=== PATIENT | female | born 2000 | race Caucasian/White ===

== ENCOUNTER 2021-02-25 09:54 | Outpatient (CLI) | payer OTHER, SELFPAY | END 2021-02-25 09:55 | disposition home or self-care (01) | LOC: ANHBWCAUD 09:55 | PROVIDERS: PCP Family Medicine; Visit Provider Otolaryngology | DX: H90.0 Conductive hearing loss, bilateral (principal) | CPT/HCPCS: 92557; 92567 ==

== ENCOUNTER 2021-03-14 02:56 | Day surgery (SDC) | payer OTHER, SELFPAY ==
[2021-03-05 15:08] VITALS: BMI 20.7
--- NOTE | 2021-03-05 15:33 | PC.NURSE ---
Report to the Outpatient Waiting Room, entrance under the green pavilion located off [facility], at time 1230 on date 03/14/21__. OR Time: ____1430____. - You and your visitor will be asked a series of questions to screen for COVID 19 for your protection. - A mask is required within the hospital. - CURRENTLY NO VISITORS Allowed at this time. Patient visitors will be guided where to wait when not with patient. Preoperative COVID Testing Requirements: No COVID Test needed if: (proof is required; if not received patient will have Rapid Test prior to entry) - Patient has received COVID Vaccine at least 14 days prior to procedure date or - Patient has positive COVID test result within last 90 days of surgery date. COVID Test needed if above criteria is not met If not COVID vaccinated a COVID test must be conducted within 72 hours of surgery and patient is asked to isolate self from time of testing until procedure. You will go to the [facility] for your COVID testing. The [facility] is located at the corner of [address] [facility]. You will only be called if COVID results are positive and your surgeon may reschedule your elective surgery date. Patients may have clear liquids (water, carbonated beverages, clear teas, apple juice) until 3 hours prior to surgery with a maximum of 20 ounces. - No food from midnight until time of surgery - Infants may have breast milk until 4 hours before surgery, formula 6 hours prior to surgery. - Children will be allowed to drink immediately following surgery. If applicable, please bring a bottle or sippy cup to assist with drinking. Juice, water, soda, and popsicles are readily available. For infants on formula, please bring formula the day of surgery. Pacifiers are allowed. Take the following medications with a SIP of water the morning of surgery: __AMITRIPTYLINE Medications to discontinue per physician MULTIVITAMIN Date to take last dose__03/11/21 Please no make-up, nail djiboutian, hairspray, perfume, deodorant, or body powder the day of surgery. No jewelry (including any body piercings) or valuables the day of surgery, leave them at home. Please take a shower or bath the night before, or the morning of, surgery with an antibacterial soap. Wear comfortable, loose fitting clothing. Children are encouraged to wear pajamas. - Jewelry must be removed prior to entering the operating room. Rings and piercings that are not removed may be cut off. - The hospital will not accept responsibility for valuables. - Please leave all valuables, including medications, at home the day of surgery. If you are going home after surgery, a licensed food mobile driver must drive you home. - NO public transportation without another adult. - We recommend that an adult stay with you for 24 hours following discharge. - We also recommend that you do not drive, make important decision, drink alcoholic beverages, or take any drugs that were not prescribed by your health care provider for at least 24 hours after your discharge time. For Pediatric surgeries, we recommend two adults accompany the child home (only one inside the building at this time). Follow any additional instructions given to you from your surgeon. Telephone instructions given to __BRADEN and asked if any additional questions and then verbalized understanding. Patient advised to call surgeon office or pre surgery nurse liaison [phone] if any additional questions.
--- NOTE | 2021-03-13 18:28 | PM.IMHP ---
H&P: HPI History of Present Illness Date/Time: 03/13/21 18:28 Chief Complaint: adenoiditis, adenoid hypertrophy Narrative: patient presents for planned surgical procedure no change in symptoms no change in history Review of Systems Constitutional: Constitutional: Denies fatigue, Denies fever(s) and Denies lethargy Eyes: Eyes: Denies blurry vision and Denies change in vision ENT: Reports as per HPI Cardiovascular: Cardiovascular: Denies chest pain Respiratory: Respiratory: Denies cough Endocrine: Endocrine: Denies fatigue Hematologic/Lymphatic: Hematologic/Lymphatic: Denies easy bleeding, Denies easy bruising and Denies lymphadenopathy Allergic/Immunologic: Allergic/Immunologic: Denies seasonal rhinorrhea [facility] Past Medical History Medical History Astigmatism Constipation IBS (irritable bowel syndrome) Infectious mononucleosis without complication Iron deficiency anemia due to chronic blood loss Menorrhagia with irregular cycle Other irritable bowel syndrome Umbilical hernia Surgical History Surgical History History of appendectomy History of shoulder surgery Family History Family History Grandparent Hypertension Family history of malignant neoplasm of breast Mother Family history of mental disorder Sibling Family history of mental disorder Asthma Social History Social History Smoking status: Never smoker Alcohol intake: never Substance use: never Substance use type: does not use Living arrangements: alone Spiritual care concerns: No Meds Home Medications and Allergies Home Medications Medication Instructions Recorded Confirmed Type L norgest/E estradiol-E estrad 1 tablet PO DAILY #91 each 10/20/20 03/05/21 Rx 0.15 mg-30 mcg (84)/10 mcg(7) tabs,3mos amitriptyline 10 mg tablet 20 mg PO DAILY #180 tablet 12/02/20 03/05/21 Rx clindamycin HCl 300 mg capsule 300 mg PO Q8H #21 cap 02/27/21 03/05/21 Rx methylprednisolone 4 mg tablets in See Rx Instructions PO PER PKG DIR 02/27/21 03/05/21 Rx a dose pack #21 ea fluticasone propionate [Flonase] 2 spray INTRANASAL DAILY 03/05/21 03/05/21 History multivit with min-folic acid 1 tablet PO DAILY 03/05/21 03/05/21 History [Adult One Daily Multivitamin] Allergies Allergy/AdvReac Type Severity Reaction Status Date / Time amoxicillin [From Augmentin] Allergy Severe Anaphylaxis Verified 03/05/21 15:28 clavulanic acid Allergy Severe Anaphylaxis Verified 03/05/21 15:28 [From Augmentin] Exam Const: General: cooperative, healthy appearing, comfortable, well developed and alert HENMT: Head: normal to inspection, normocephalic and atraumatic Ears: hearing grossly normal bilaterally, external ears normal, TM's normal bilaterally and EAC's normal General nose exam: Normal external nose present, Normal nares present, No nasal polyps present, Normal nasal mucous membranes and turbinates present and Normal septum present Face and sinus: normal facial exam Mouth: Yes Normal oral and palatal mucosa present, Yes lip normal, Yes tongue normal, Yes oropharynx normal and Yes moist mucous membranes Teeth and gingiva: dentition normal and gingiva normal Throat: posterior oropharynx normal, tonsils normal and uvula midline Eyes: General: appearance normal, both eyes and all related structures Periorbital: periorbital findings normal Eyelids: eyelids normal Conjunctivae: conjunctivae normal Sclera: sclerae normal Neck: Neck: normal visual inspection, full ROM and no lymphadenopathy Thyroid: thyroid normal Lymphatic: no lymphadenopathy noted Resp: Effort & Inspection: normal respiratory effort and able to speak in complete sentences Cardio: Jugular venous distension: no JVD Neuro: Cranial nerves: Ye
[2021-03-14] VITALS (8 sets, daily range): BP systolic 110–136; BP diastolic 69–96; PULSE 79–110; RESP 14–22; TEMP 36.2–36.6; O2SAT 97–100
[2021-03-14] MEDS: ACETAMINOPHEN 500 MG TABLET 1000 MG PO (06:48)
--- NOTE | 2021-03-14 07:18 | WPDHPUPDATE1 ---
History and Physical Update Update Date/Time: 03/14/21 07:18 History and Physical has been reviewed, including an updated exam of the patient. There are NO changes in the patient's condition. Risks, benefits, and alternatives have been discussed and questions answered. Patient agrees to proceed with procedure.
--- NOTE | 2021-03-14 07:25 | WPDANESEPPF ---
Anes - Initial Pre Proc Eval Procedure: Operation Date: 03/14/21 08:30 Proposed Procedures p Adenoidectomy - Mina Kirkpatrick MD Date/Time: 03/14/21 07:25 Surgeon: Mina Kirkpatrick MD Pre Op Diagnosis: Adnoid Hypertrophy Patient Data Age: 20 Gender: F Height: 1.7 m Weight: 62.3 kg Allergies Allergy/AdvReac Type Severity Reaction Status Date / Time amoxicillin [From Augmentin] Allergy Severe Anaphylaxis Verified 03/14/21 06:44 clavulanic acid Allergy Severe Anaphylaxis Verified 03/14/21 06:44 [From Augmentin] Home Medications Medication Instructions Recorded Confirmed Type L norgest/E estradiol-E estrad 1 tablet PO DAILY #91 each 10/20/20 03/14/21 Rx 0.15 mg-30 mcg (84)/10 mcg(7) tabs,3mos amitriptyline 10 mg tablet 20 mg PO DAILY #180 tablet 12/02/20 03/14/21 Rx fluticasone propionate [Flonase] 2 spray INTRANASAL DAILY 03/05/21 03/14/21 History multivit with min-folic acid 1 tablet PO DAILY 03/05/21 03/14/21 History [Adult One Daily Multivitamin] Patient hx anesthesia problems: post op nausea/vomiting Family hx anesthesia problems: none Results Review: All pre-operative results and documents have been reviewed as part of the pre-operative evaluation. [facility] Past Medical History Medical History Astigmatism Constipation IBS (irritable bowel syndrome) Infectious mononucleosis without complication Iron deficiency anemia due to chronic blood loss Menorrhagia with irregular cycle Other irritable bowel syndrome Umbilical hernia Surgical History Surgical History History of appendectomy History of shoulder surgery Family History Family History Grandparent Hypertension Family history of malignant neoplasm of breast Mother Family history of mental disorder Sibling Family history of mental disorder Asthma Social History Social History Smoking status: Never smoker Alcohol intake: never Substance use: never Substance use type: does not use Living arrangements: alone Spiritual care concerns: No Anes - Eval Final PreProcedure Day of Procedure 03/14/21 07:25 Patient weight: normal Heart: regular rate and rhythm Lungs: clear to auscultation Airway: Mallampati scale class II Neurological: alert and oriented Last oral intake: >/= 8 hours ASA classification: II Emergent: no Anesthetic plan: proceed Anesthesia type and monitoring: general ETT and standard monitoring Results Review: All pre-operative results and documents have been reviewed as part of the pre-operative evaluation. Informed Consent: The patient's anesthetic plan and its attendant risks and benefits were discussed with the patient/family/POA. Questions were solicited and answers provided to the satisfaction of the patient/family/POA.
[2021-03-14] MEDS: SCOPOLAMINE 1.5 MG PATCH TRANSDERM (07:32)
[2021-03-14] MEDS: LACTATED RINGERS 1,000 ML 30 ML IV CONT (07:32)
[2021-03-14] MEDS: OXYMETAZOLINE HCL 0.05% NAS 15 ML BTL (*BKC) 1 SPRAY NASAL (08:29)
--- NOTE | 2021-03-14 09:02 | P.OP_ITS ---
Procedure Note - Detailed Date of Procedure 03/14/21 Pre-op Diagnosis Adnoid Hypertrophy, adenoiditis, nasopharyngeal cleft Post-op Diagnosis same Procedure Performed Nasopharyngoscopy as well as transoral adenoidectomy Surgeon Mina Kirkpatrick MD Anesthesia general Indications See above Findings 1 to 2+ adenoid pad removed significant nasopharyngeal cleft with food purulence and tonsil stone debris within it possible clival defect debrided of debris in cleft lining cauterized Description of Procedure Patient correctly identified consent verified. . Patient brought operating room. Time-out performed. General anesthesia induced endotracheal tube secured bed rotated patient prepped and draped. Second time-out performed. McIvor mouthgag placed opened red rubbers placed transnasally suspending the soft palat e anteriorly revealing a 1 to 2+ adenoid pad erythematous scant purulence if any this was cauterized using suction Bovie electrocautery setting of 30 a large cleft was then noted within the adenoid pad extending to the clivus. This was full of purulence tonsil stone debris and food debris. I somewhat cauterized the cleft lining and widen the opening into the adenoid pad without removing too much passive thoughts ridge. There was no bleeding. Total blood loss approximately 1 cc. I performed all dictated portions of the procedure. Care the patient turned over to Anesthesiology. McIvor mouth gag red rubber was removed. Drains No Packing No Pathology none sent Complications No immediate complications Condition stable Disposition PACU
[2021-03-14] MEDS: oxyCODONE HCL (*CRX) 5 MG TAB IR PO (09:47)
== END 2021-03-14 10:25 | disposition home or self-care (01) ==
PROVIDERS: PCP Family Medicine; Visit Provider Otolaryngology
PROC: (CPT 42831; principal; 2021-03-14 08:30)
DX: J35.02 Chronic adenoiditis (principal); Q30.2 Fissured, notched and cleft nose; K58.9 Irritable bowel syndrome, unspecified; D50.9 Iron deficiency anemia, unspecified
CPT/HCPCS: 42831; A9270; J0330; J1100; J2250; J2405; J2704; J3010; J7120

== ENCOUNTER → 2021-11-27 12:47 | Outpatient (CLI) | payer OTHER, SELFPAY ==
--- NOTE | ~2021-11-27 | US_ITS ---
US abdomen complete DATE: 11/27/2021 13:12 INDICATION: Right upper quadrant abdominal pain TECHNIQUE: Real-time imaging and Doppler analysis of the abdomen COMPARISON: 06/21/2015 complete abdominal ultrasound examination FINDINGS: No hepatic or pancreatic space-occupying mass lesion is detected. Normal hepatopedal portal venous flow direction. No gallstones, gallbladder wall thickening or abnormal pericholecystic fluid collection. Negative sonographic Delgado's sign. The common bile duct measures 3 mm, normal. Normal splenic size. No renal mass lesion or hydronephrosis. Normal caliber of the abdominal aorta. IMPRESSION: No significant abnormality Reviewed, dictated and finalized at [facility]. Reviewed, dictated and finalized at location [facility]. IMPRESSION: No significant abnormality
== END ==
PROVIDERS: PCP Family Medicine; Visit Provider Family Medicine
DX: R10.11 Right upper quadrant pain (principal)
CPT/HCPCS: 76700

== ENCOUNTER → 2022-02-24 09:23 | Outpatient (CLI) | payer OTHER, SELFPAY ==
--- NOTE | ~2022-02-24 | XR_ITS ---
Thoracic spine: Clinical Indication: Back spasms/pain AP and lateral views were performed. No fracture is seen. There is normal alignment of the vertebrae. The intervertebral disc spaces appe ar normal. Paravertebral soft tissues appear normal. Impression: No significant abnormalities noted. Reviewed, dictated and finalized at [facility]. ING MIXER SUPERVISOR Impression: No significant abnormalities noted.
--- NOTE | ~2022-02-24 | XR_ITS ---
Cervical Spine: AP, lateral, open-mouth views Clinical History: Pain Findings: The normal lordotic curve is maintained. The vertebral bodies and posterior elements appea r intact. The intervertebral disc spaces are well maintained. Pre-vertebral soft tissues are unremar kable. Impression: No significant abnormality is seen. Reviewed, dictated and finalized at [facility]. KO KURA K[employer]UP[employer]A MAORI Impression: No significant abnormality is seen.
== END ==
PROVIDERS: PCP Physician Assistant; Visit Provider Physician Assistant
DX: M54.2 Cervicalgia (principal); M54.6 Pain in thoracic spine
CPT/HCPCS: 72050; 72070

== ENCOUNTER → 2022-04-08 14:51 | Outpatient (CLI) | payer OTHER, SELFPAY ==
--- NOTE | ~2022-04-08 | MR_ITS ---
MRI of the cervical spine Clinical History: Pain Technique: Axial T2-weighted and gradient images, and sagittal T1-weighted, T2-weighted, and STIR larisa ges were acquired. Findings: There is mild reversal normal cervical lordosis. No fracture or subluxation seen otherwise. No focal bone marrow signal abnormality identified. At C2-C3, C3-C4, C4-C5, and C5-C6, there is no disc bulge or herniation. No spinal canal stenosis, co rd compression, or neural foraminal narrowing at these levels. At C6-C7, there is a central disc bulge, which mildly flattens the ventral cord. Bilateral neural for sami are preserved. No abnormal signal seen in the spinal cord itself. Paravertebral soft tissues are unremarkable. Impression: Central disc bulge at C6-C7 which minimally flattens the ventral cord. Reviewed, dictated and finalized at [facility]. X RAY PHYSICIAN Impression: Central disc bulge at C6-C7 which minimally flattens the ventral cord.
== END ==
PROVIDERS: PCP Family Medicine; Visit Provider Nurse Practitioner Adult Health
DX: M54.2 Cervicalgia (principal)
CPT/HCPCS: 72141

== ENCOUNTER 2022-07-28 01:29 | Day surgery (SDC) | payer BC, SELFPAY ==
[2022-07-22 08:27] VITALS: BMI 23.4
--- NOTE | 2022-07-22 08:31 | PC.NURSE ---
Report to the Outpatient Waiting Room, entrance under the green pavilion located off [facility], at time 0900 on date 07/28/22. Planned Procedure Time: 1100. Time changes happen often and if your time is changed the preop area will call you the afternoon before. - You and your visitor will be asked to self-screen and do not enter if you have any COVID symptoms. - A mask is optional within the hospital at this time. Patients may have clear liquids (water, carbonated beverages, clear teas, apple juice) until 3 hours prior to surgery with a maximum of 20 ounces. - No food from midnight until time of surgery Take the following medications with a SIP of water the morning of surgery: NONE DO NOT STOP ANY OF YOUR OTHER PRESCRIPTION MEDICATIONS PRIOR TO SURGERY EXCEPT THE FOLLOWING Medications to discontinue per physician: VITAMINS Date to take last dose: 07/24/22 Please no make-up, nail cymro, hairspray, perfume, deodorant, or body powder the day of surgery. No jewelry (including any body piercings) or valuables the day of surgery, leave them at home. Please take a shower or bath the night before, or the morning of, surgery with an antibacterial soap. Wear comfortable, loose fitting clothing. - Jewelry must be removed prior to entering the operating room. Rings and piercings that are not removed may be cut off. - The hospital will not accept responsibility for valuables. - Please leave all valuables, including medications, at home the day of surgery. If you are going home after surgery, a licensed tram driver must drive you home. - NO public transportation without another adult if you receive anesthesia. - We recommend that an adult stay with you for 24 hours following discharge. - We also recommend that you do not drive, make important decision, drink alcoholic beverages, or take any drugs that were not prescribed by your health care provider for at least 24 hours after your discharge time. Follow any additional instructions given to you from your surgeon. If you or anyone in your household have experienced Covid symptoms in the past week, please notify your surgeon or the nurse liaison at the phone number below for possible testing. Telephone instructions given to PT - BRADEN TOVAR and asked if any additional questions and then verbalized understanding. Patient advised to call surgeon office or pre surgery nurse liaison [phone] if any additional questions.
--- NOTE | 2022-07-27 17:45 | PM.IMHP ---
H&P: HPI History of Present Illness Date/Time: 07/27/22 17:45 Chief Complaint: recurrent otitis media Narrative: planned procedure Review of Systems Review of Systems: All systems reviewed & are unremarkable except as noted in HPI and below [facility] Past Medical History Medical History Astigmatism Cervicalgia Constipation IBS (irritable bowel syndrome) Infectious mononucleosis without complication Iron deficiency anemia due to chronic blood loss Menorrhagia with irregular cycle Muscle spasm Other irritable bowel syndrome Umbilical hernia Surgical History Surgical History H/O adenoidectomy History of appendectomy History of shoulder surgery S/P wrist surgery Family History Family History Grandparent Hypertension Family history of malignant neoplasm of breast Mother Family history of mental disorder Sibling Family history of mental disorder Asthma Social History Social History Smoking status: Never smoker Alcohol intake: current Alcohol use details: RARE Substance use: never Substance use type: does not use Lack of Transportation: No Lack of Food: Never True Current Housing: I Have Housing Concerned About Future Housing: No Difficulty Paying Gas/Electric Bills: No Difficulty Paying for Meds: No Currently Unemployed: No Education: Associate Degree Difficulty w/ Childcare or Family Care: No Living arrangements: with family Spiritual care concerns: No Meds Home Medications and Allergies Home Medications Medication Instructions Recorded Confirmed Type multivitamin with minerals-folic 1 tablet PO DAILY 03/05/21 07/22/22 History acid 0.4 mg tablet amitriptyline 10 mg tablet 20 mg PO DAILY #180 tabs 12/02/21 07/22/22 Rx naproxen 500 mg tablet 500 mg PO BID PRN pain #60 tabs 02/23/22 07/22/22 Rx triamcinolone acetonide 0.1 % 1 applic topical BID #15 grams 05/15/22 07/22/22 Rx topical cream norgestimate-ethinyl estradiol 1 tablet PO DAILY #84 tabs 06/12/22 07/22/22 Rx 0.18 mg/0.215mg/0.25mg-35 mcg(28)tablet (Tri-Sprintec (28)) sertraline 25 mg tablet (Zoloft) 25 mg PO DAILY #90 tabs 07/10/22 07/22/22 Rx Allergies Allergy/AdvReac Type Severity Reaction Status Date / Time amoxicillin [From Augmentin] Allergy Severe Anaphylaxis Verified 07/22/22 08:26 clavulanic acid Allergy Severe Anaphylaxis Verified 07/22/22 08:26 [From Augmentin] Exam Narrative: fluid in the ears Assessment and Plan Assessment and plan (1) Recurrent otitis media of both ears: Code(s): H66.93 - Otitis media, unspecified, bilateral Status: Acute Assessment and Plan: plan OR bilateral myringotomy T-tube insertion. Risks were discussed including bleeding infection cholesteatoma facial nerve paralysis total deafness persistent perforations need for further procedures need to patch the hole. Failure to resolve symptoms. Patient voiced understanding and agreed.
--- NOTE | 2022-07-28 07:17 | WPDHPUPDATE1 ---
History and Physical Update Update Date/Time: 07/28/22 07:17 History and Physical has been reviewed, including an updated exam of the patient. There are NO changes in the patient's condition. Risks, benefits, and alternatives have been discussed and questions answered. Patient agrees to proceed with procedure.
--- NOTE | 2022-07-28 08:45 | WPDANESEPPF ---
Anes - Initial Pre Proc Eval Procedure: Operation Date: 07/28/22 11:00 Proposed Procedures p Bilateral Myringotomy with T-Tubes - Mina Kirkpatrick MD Date/Time: 07/28/22 08:45 Surgeon: Mina Kirkpatrick MD Pre Op Diagnosis: Dimitrios Chr Otitis Media & Dimitrios Eust Tube Dysfunction Patient Data Age: 21 Gender: F Height: 1.7 m Weight: 68 kg Allergies Allergy/AdvReac Type Severity Reaction Status Date / Time amoxicillin [From Augmentin] Allergy Severe Anaphylaxis Verified 07/28/22 09:35 clavulanic acid Allergy Severe Anaphylaxis Verified 07/28/22 09:35 [From Augmentin] Home Medications Medication Instructions Recorded Confirmed Type multivitamin with minerals-folic 1 tablet PO DAILY 03/05/21 07/28/22 History acid 0.4 mg tablet amitriptyline 10 mg tablet 20 mg PO DAILY #180 tabs 12/02/21 07/28/22 Rx naproxen 500 mg tablet 500 mg PO BID PRN pain #60 tabs 02/23/22 07/28/22 Rx triamcinolone acetonide 0.1 % 1 applic topical BID #15 grams 05/15/22 07/28/22 Rx topical cream norgestimate-ethinyl estradiol 1 tablet PO DAILY #84 tabs 06/12/22 07/28/22 Rx 0.18 mg/0.215mg/0.25mg-35 mcg(28)tablet (Tri-Sprintec (28)) sertraline 25 mg tablet (Zoloft) 25 mg PO DAILY #90 tabs 07/10/22 07/28/22 Rx Patient hx anesthesia problems: post op nausea/vomiting Family hx anesthesia problems: none Results Review: All pre-operative results and documents have been reviewed as part of the pre-operative evaluation. [facility] Past Medical History Medical History (Updated 07/28/22 @ 08:46 by James Meyer DO) Anxiety Astigmatism Cervicalgia Constipation IBS (irritable bowel syndrome) Infectious mononucleosis without complication Iron deficiency anemia due to chronic blood loss Menorrhagia with irregular cycle Muscle spasm Other irritable bowel syndrome Umbilical hernia Surgical History Surgical History H/O adenoidectomy History of appendectomy History of shoulder surgery S/P wrist surgery Family History Family History Grandparent Hypertension Family history of malignant neoplasm of breast Mother Family history of mental disorder Sibling Family history of mental disorder Asthma Social History Social History Smoking status: Never smoker Alcohol intake: current Alcohol use details: RARE Substance use: never Substance use type: does not use Lack of Transportation: No Lack of Food: Never True Current Housing: I Have Housing Concerned About Future Housing: No Difficulty Paying Gas/Electric Bills: No Difficulty Paying for Meds: No Currently Unemployed: No Education: Associate Degree Difficulty w/ Childcare or Family Care: No Living arrangements: with family Spiritual care concerns: No Anes - Eval Final PreProcedure Day of Procedure 07/28/22 08:45 Patient weight: normal Heart: regular rate and rhythm Lungs: clear to auscultation and normal air movement Airway: Mallampati scale class II Neurological: alert and oriented Last oral intake: >/= 8 hours ASA classification: II Emergent: no Anesthetic plan: proceed Anesthesia type and monitoring: general LMA and standard monitoring Results Review: All pre-operative results and documents have been reviewed as part of the pre-operative evaluation. Informed Consent: The patient's anesthetic plan and its attendant risks and benefits were discussed with the patient/family/POA. Questions were solicited and answers provided to the satisfaction of the patient/family/POA.
[2022-07-28 09:27] VITALS: BP 125/77; PULSE 90; RESP 16; TEMP 36.3; O2SAT 99
[2022-07-28] MEDS: LACTATED RINGERS 1,000 ML 30 ML IV CONT (09:46)
[2022-07-28] MEDS: SCOPOLAMINE 1.5 MG PATCH TRANSDERM (10:09)
[2022-07-28] MEDS: CIPROFLOXACIN HCL 0.3% OP SOLN 2.5 ML BTL 4 DROP EACH EAR (11:03)
[2022-07-28 11:15] VITALS: BP 99/61; PULSE 67; RESP 14; TEMP 36.4; O2SAT 100
[2022-07-28 11:30] VITALS: BP 115/79; PULSE 79; RESP 18; O2SAT 100
--- NOTE | 2022-07-28 11:36 | W.PM.PROC2 ---
Procedure Note - Detailed Date of Procedure 07/28/22 Pre-op Diagnosis Dimitrios Chr Otitis Media & Dimitrios Eust Tube Dysfunction Post-op Diagnosis Same Procedure Performed For myringotomy tube insertion bilateral not for Surgeon Mina Kirkpatrick MD Anesthesia General ( LMA) Indications see above Findings aerated middle ears today minimal bleeding Description of Procedure patient identified consent verified. Patient brought operating. Time-out performed. General anesthesia induced LMA secured. Patient prepped draped position procedure Confirmed. Second time-out per 4 vannesa microscope brought in field right-sided viewed myringotomy made T-Tube placed exact same procedure performed on the left side with exact same findings aerated middle ears minimal bleeding. Patient tolerated the procedure well drops placed. Care the patient given Anesthesiology blood loss 0 cc no complications I performed all dictated portions the procedure patient taken to PACU. Drains No Packing No Pathology None sent Complications No immediate complications Condition Stable Disposition PACU [facility] Billing Surgery - Charge Forward: Surgery Billing
[2022-07-28 11:46] VITALS: BP 131/79; PULSE 70; RESP 18; O2SAT 100
[2022-07-28 12:15] VITALS: BP 127/93; PULSE 73; RESP 16; O2SAT 100
== END 2022-07-28 12:38 | disposition home or self-care (01) ==
PROVIDERS: Visit Provider Otolaryngology
PROC: (CPT 69436; principal; 2022-07-28 11:00)
DX: H66.93 Otitis media, unspecified, bilateral (principal); H69.83 Other specified disorders of Eustachian tube, bilateral
CPT/HCPCS: 69436; A9270; J1100; J2405; J2704; J3010; J7120

== ENCOUNTER 2022-12-29 13:39 | Outpatient (CLI) | payer BC, SELFPAY ==
[2022-12-29 19:35] LABS: Anion Gap 7 mmol/L (8-16); Blood Urea Nitrogen 15 mg/dL (7-17); Calcium 9.8 mg/dL (8.4-10.2); Carbon Dioxide 30 mmol/L (22-30); Chloride 100 mmol/L (98-107); Estimated Glomerular Filt Rate > 60; Glucose 89 mg/dL (65-110); Sodium 137 mmol/L (137-145)
[2022-12-29 19:44] LABS: Vitamin D 25 Hydroxy 54.1 ng/mL
[2022-12-29 20:06] LABS: Thyroid Stimulating Hormone 0.481 uIU/mL (0.465-4.680)
== END 2022-12-29 13:40 | disposition home or self-care (01) ==
LOC: ANHGOSHLAB 13:40
PROVIDERS: PCP Family Medicine; Visit Provider Nurse Practitioner Family
DX: R63.5 Abnormal weight gain (principal); E55.9 Vitamin D deficiency, unspecified
CPT/HCPCS: 36415; 80048; 82306; 82607; 84443

== ENCOUNTER 2023-12-24 06:50 | Outpatient (CLI) | payer BC, SELFPAY ==
--- NOTE | ~2023-12-24 | NM_ITS ---
EXAMINATION: NM hepatobiliary w pharm DATE: 12/24/2023 09:38 CDT INDICATION: Gallstones COMPARISON: Ultrasound dated 11/27/2021. TECHNIQUE: 4.8 mCi Tc-99m mebrofenin (Choletec) was administered intravenously. Scintigraphic images of the abdomen were obtained for one hour. At the 1 hour time point, [1.5 mcg sincalide (Kinevac) wa s administered by slow intravenous infusion, and imaging was continued for 30 minutes. Gallbladder ej ection fraction was calculated by the technologist.] FINDINGS: There is normal clearance of radiotracer from the blood pool. There is homogeneous tracer u ptake by the liver. Activity progresses to the gallbladder and bowel. Gallbladder ejection fraction is 48% (normal 10-90%, but most patient with gallbladder dysfunction have GBEF < 35%).] IMPRESSION: 1. Normal hepatobiliary scan. Reviewed, dictated and finalized at location B.
== END 2023-12-24 06:51 | disposition home or self-care (01) ==
PROVIDERS: PCP Family Medicine; Visit Provider Family Medicine
DX: K80.20 Calculus of gallbladder without cholecystitis without obstruction (principal); K58.9 Irritable bowel syndrome, unspecified
CPT/HCPCS: 78227; A9537; J2805

== ENCOUNTER 2024-04-24 16:03 | Outpatient (CLI) | payer OTHER, BC, SELFPAY ==
--- NOTE | ~2024-04-24 | CT_ITS ---
. EXAMINATION: CT pelvis wo con DATE: 04/24/2024 16:23 INDICATION: Left lower quadrant pain TECHNIQUE: High resolution computed tomography (CT) of the pelvis was performed without intravenous c ontrast. Additional sagittal and coronal reconstructions were performed. Automated exposure control a nd iterative reconstruction technique were employed. The dose-length product was 336.59 mGy-cm. COMPARISON: CT dated 09/08/2011 FINDINGS: Postoperative change of prior appendectomy with suture line along the tip the cecum and a couple fariba cent surgical clips in the right pelvis. Large amount of stool in the visualized colon. Small bowel i s unremarkable with no dilation to suggest obstruction. Bladder is normal. Anteverted uterus and left adnexa are unremarkable. 4.0 cm right adnexal cyst. No free intraperitoneal gas or fluid. No patholo gically enlarged pelvic or inguinal lymphadenopathy. L5 is sacralized on the left. IMPRESSION: 1. 4 cm right adnexal cyst. Otherwise unremarkable CT of the pelvis. Reviewed, dictated and finalized at location A. INE BRUSH MAKER
--- OUTSIDE RECORDS SUMMARY | 2024-04-24 18:20 | XMS_ITS | Referral Summary ---
Author Organization [facility] Address [address] [place] [address] Care Team Providers Care Grain Wafer Machine Operator Name Role Phone Lisa Cleveland NP Primary Care Provider [phone] Allergies Active Allergy Reactions Criticality Noted Date Comments Amoxicillin-Pot Clavulanate Diarrhea Medium 06/05/19 18 Medications multivitamin tablet tabletIndicatio ns:Vitamin Deficiency Prevention,stop 5 days before surgery Take 2 tablets by mouth. Active fluticasone (FLONASE) 50 mcg/actuation nasal spray Administer 2 sprays into each nostril. 8 Active DAYSEE 0.15 mg-30 mcg (84)/10 mcg (7) tablets,dose pack,3 month 8 Active dicyclomine (BENTYL) 20 mg tablet Take 20 mg by mouth as needed 7 Active cyproheptadine (PERIACTIN) 4 mg tablet Take 4 mg by mouth. 8 Active omeprazole (PriLOSEC) 20 mg capsule Take 20 mg by mouth. 7 Active amitriptyline (ELAVIL) 10 mg tablet TK 1 T PO QD HS 0 8 Active Active Problems Problem Noted Date Diagnosed Date Irritable bowel syndrome wit h both constipation and diarrhea 08/29/2018 Assessment & Plan (08/29/2018 2:40 PM CDT): Reviewed all records. EGD and Biopsies at [facility] were all normal. She feels better opn the bentyl and elavil and presently is in the constipation mode. Offered endo eval, CT, blood work but on the basis of Hx to this point suspect all would be normal. She decided to continue the present regimen and return or call me prn Epigastric pain 08/02/2018 Assessment & Plan (08/02/2018 4:17 PM CDT): Have reviewed all notes,labs,images and procedures available. Has apparently had eval and follow at [facility] so will get those records. pc Epi bloat,cramp 4 years with D/C. Bentyl and elavil bith help sx but bentyl makds her dizzy. 3 yrs ago rectal bleed and none since. Active high school student. PE neg. Discussed likelihood ibs but offered full eval. She agrees to bentyl 10 30min ac and hs and continue the elavil 20 hs. Review [facility] records and return 3 weeks. Status post repair of glenoid labrum 11/05/2017 Glenoid labral tear, right, initial encounter Overview (10/11/2017): Added automatically from request for surgery [id number] Closed anterior dislocation of right shoulder Overview (10/11/2017): Added automatically from request for surgery [id number] Right upper quadrant abdominal pain 06/14/2017 Assessment & Plan (06/20/2017 9:33 AM CDT): Plan to check LBD TEACHER, Amylase and lipase. Arrange US of abdomen. RX for zofran 4 mg provided. Routine medical exam 09/28/2016 Assessment & Plan (09/28/2016 9:13 PM CDT): Completed school physical form. Up to date with immunizations. Abdominal bloating 09/28/2016 Assessment & Plan (09/28/2016 9:14 PM CDT): Using dicyclomine 20 mg prn for abdominal cramping. Will start zantac to see if helps with bloating and belching. BMI 20.0-20.9, adult 09/28/2016 Assessment & Plan (06/20/2017 9:32 AM CDT): Weight stable. BMI normal. Assessment & Plan (09/28/2016 9:16 PM CDT): BMI stable. Discussed with pt. Importance of proper caloric intake diet and exercise. Pain in forearm 06/11/2016 Pain in wrist 06/11/2016 Abdominal pain, LUQ (left upper quadrant) 2015 Perforated appendicitis 10/12/2011 Immunizations Immunization Administration Dates Next Due DTaP, Unspecified 10/07/2005, 3,05/28/2001, 002,02/04/2001 Hep B, Unspecified 05/28/2001,2000, 001 HiB 05/28/2001,04/02/2001,02/04/2001 IPV 10/07/2005, 3,04/02/2001, 001 MMR 10/04/2006,10/13/2004 Meningococcal ACWY, Unspecified 10/02/2015 Pneumococcal Conjugate, Unspecified 12/13/2001,0 08/30/2001 Tdap 07/19/2012 Varicella 10/04/2006,12/13/2001 Social History Tobacco Use Types Packs/Day Years Used Date Smoking Tobacco: Never Smokeless Tobacco: Never Alcohol Use Standard Drinks/Week Comments No 0 (1 standard drink = 0.6 oz pur e alcohol) Comments No Sex and Gender Information Value Date Recorded Sex Assigned at Not on file Legal Sex Female 1:06 AM COSTUMER ASSISTANT Gender Identity Not on file Sexual Orientation Not on file Last Filed Vital Signs Vital Sign Reading Time Taken Comments Blood Pressure 110/58 08/29/2018 2:07 PM CDT Pulse 94 08/29/2018 2:07 PM CDT Temperature 37.4 C (99.3 F) 08/29/2018 2:07 PM CDT Respiratory Rate 16 10/21/2017 1:48 PM CDT Oxygen Saturation 98% 08/29/2018 2:07 PM CDT Inhaled Oxygen Concentration - - Weight 59.4 kg (131 lb) 08/29/2018 2:07 PM CDT Height 170.2 cm (5' 7 ) 08/29/2018 2:07 PM CDT Body Mass Index 20.52 08/29/2018 2:07 PM CDT Plan of Treatment Not on file Medical Devices Implanted Type Area Coder Device Identifier Shelf Expiration Date Model / Serial / Lot [employer] [id number] Pushlock 2.9mm 12.5mm Cannulated Eyelet Handle Water Pipe Installer Short - [id number] Implanted:Qty: 3 on 10/21/2017 by Jay Feliz MD at [facility] Right: Shoulder [employer] 06/06/2019 AR-[id number] / / [id number] Arthrex Labral Tape 1.5mm Implanted:Qty: 4 on 10/21/2017 by Jay Feliz MD at [facility] Right: Shoulder [employer] [id number] 02/04/2022 [id number] / / [id number] [employer] Ar-2923bc Pushlock 2.9mm 12.5mm Cannulated Eyelet Handle Water Pipe Installer Short - [id number] Implanted:Qty: 1 on 10/21/2017 by Jay Feliz MD at [facility] Right: Shoulder [employer] 01/05/2019 AR-[id number] / / [id number] Procedures Procedure Name Priority Date/Time Associated Diagnosis Comments HEPATITIS C ANTIBODY Routine 01/14/2023 3:09 PM COSTUMER ASSISTANT from Last 3 Months or Most Recently Relevant to Health Maintenance Results * Hepatitis C antibody Blood (01/14/2023 3:09 PM COSTUMER ASSISTANT) Hep C Ab Nonreactive Nonreactive [facility] Comment: Interpretive Data Nonreactive: Antibodies to HCV not detected. Does NOT exclude the possibility of recent exposure to HCV. Equivocal: Equivocal for HCV antibodies. Supplemental molecular testing will be automatically performed to determine infection status in accordance with current CDC screening recommendations. Reactive: Positive for HCV antibodies. This may represent current or past HCV infection. Supplemental molecular testing will be automatically performed to determine current infection status in accordance with current CDC screening recommendations. Interpretive data was last revised on 2019. Blood 01/14/2023 3:09 PM COSTUMER ASSISTANT 01/14/2023 5:42 PM COSTUMER ASSISTANT Alejandra Huggins MD LAB MICROBIOLOGY - GENERAL ORDER CARRIE Final Result [facility] [address] Department [place] [address] from Last 3 Months or Most Recently Relevant to Health Maintenance Insurance [email or web address] [facility] Care Teams Grain Wafer Machine Operator Relationship Specialty [place] [address] [address] PCP - General 10/21/17
--- OUTSIDE RECORDS SUMMARY | 2024-04-24 18:20 | XMS_ITS | Encounter Summary ---
Author Organization [facility] Address [address] [place] [address] Care Team Providers Care Touch Up Painter Hand Name Role Phone Darell Tellez MD Primary Care Provider [phone] Lisa Cleveland [facility] Primary Care Provide r Darell Tellez MD Primary Care Provider [phone] Reason for Visit * Reason Onset Date Comments Parent Return Call 01/13/2016 Encounter Details Date Type Department Care Team (Late st Contact Info) Description 01/13/2016 Telephone [facility] - [address] [address] Alyssa Castañeda MD [address] [place] [phone] Parent Return Call Social History Tobacco Use Types Packs/Day Years Used Date Smoking Tobacco: Never Sex and Gender Information Value Date Recorded Sex Assigned at Not on file Gender Identity Not on file Sexual Orientation Not on file documented as of this encounter Miscellaneous Notes * Telephone Encounter - Noni Andujar - 01/21/2016 2:29 PM CST Mom calling back. They have decided to hold off on scheduling scope at this time. They are going towork on trying to eliminate things from Ciera's diet and see if that helps. UTER SUPPORT SPECIALIST INSTRUCTOR * Telephone Encounter - Noni Andujar - 01/20/2016 11:37 AM COMPUTER SUPPORT SPECIALIST INSTRUCTOR Spoke with mom, they are still undecided as to whether they wish to proceed with EGD. She will callback. UTER SUPPORT SPECIALIST INSTRUCTOR * Telephone Encounter - Noni Andujar - 01/15/2016 10:50 AM COMPUTER SUPPORT SPECIALIST INSTRUCTOR Spoke with mom, she wishes to discuss this with Ciera to see that her symptoms are bad enough to proceed with scope because their insurance is terrible and they don't want to take on unnecessary bills. Mom and dad would also then need to discuss timing if they choose to proceed. Mom will call backtomorrow to update. UTER SUPPORT SPECIALIST INSTRUCTOR * Telephone Encounter - Lila Dodson - 01/14/2016 3:24 PM CST Left VM to call office to schedule EGD UTER SUPPORT SPECIALIST INSTRUCTOR * Telephone Encounter - Kelsey Mattson RN - 01/14/2016 1:[address] Castañeda 's message on mom's identified VM. UTER SUPPORT SPECIALIST INSTRUCTOR * Telephone Encounter - Alyssa Castañeda MD - 01/14/2016 12:38 PM CST Ciera has been dependent on high dose PPIs for several months. My recommendation is to proceed with EGD. UTER SUPPORT SPECIALIST INSTRUCTOR * Telephone Encounter - Ashely King RN - 01/13/2016 10:37 AM COMPUTER SUPPORT SPECIALIST INSTRUCTOR Spoke to mom, states that the pain is for sure better on the medication, but she can not say it is completely gone. Will update Dr. Castañeda UTER SUPPORT SPECIALIST INSTRUCTOR * Telephone Encounter - Noni Andujar - 01/13/2016 10:32 AM COMPUTER SUPPORT SPECIALIST INSTRUCTOR Mom returning call. UTER SUPPORT SPECIALIST INSTRUCTOR documented in this encounter Plan of Treatment Not on file documented as of this encounter Visit Diagnoses Not on filedocumented in this encounter Care Teams Touch Up Painter Hand Relationship Specialty Start Date End Date Darell Tellez MD [address] [place] [address] PCP - General Pediatrics 09/10/11 11/18/16 Lisa Cleveland, PRODUCT BLENDING SUPERVISOR-DAIRY CHEMIST [address] [place] [address] PCP - General Nurse Practitioner 11/19/16 06/24/17 Darell Tellez MD [address] [place] [id number] PCP - General 06/25/17 documented as of this encounter
--- OUTSIDE RECORDS SUMMARY | 2024-04-24 18:20 | XMS_ITS | Clinical Summary ---
Author Organization [facility] Address [address] [facility] [place] [address] Care Team Providers Care Food Service Assistant Name Role Phone Darell Tellez MD Primary Care Provider [phone] Source Comments [facility],non-owned Affiliates and Associated Physician Practices is amultiple site organization consisting of ambulatory clinics and hospital sitesin [place], [place], [place] and [place]. This disclosure is being madepursuant to the Care Everywhere program and may not contain all information available regarding this patient. Last updated 17.[facility] Allergies Active Allergy Reactions Criticality Noted Date Comments Amoxicillin-Pot Clavulanate Diarrhea Medium 06/05/19 Medications * Be aware that medications may not be up to date on this document. Alwaysverify current medications with the patient. Medication Sig Dispensed Refills Start Date End Date Status levonorgestrel-ethin yl estradiol (DAYSEE) 0.15-0.03 &0.01 MG tablet 05/26/2017 Active SPIRONOLACTONE PO Active Amitriptyline HCl Active benzonatate (TESSALON) 200 MG capsuleIndications:C ough Take 1 capsule by mouth 3 times daily as needed for Cough 30 capsule 05/06/2018 Active Active Problems Problem Noted Date Diagnosed Date Abdominal pain, LUQ (left upper quadrant) 2015 Perforated appendicitis 10/12/2011 Family History Medical History Relation Name Comments Negative Family History Other Relation Name Status Comments Father Alive Mother Alive Other Social History Tobacco Use Types Packs/Day Years Used Date Smoking Tobacco: Never Smokeless Tobacco: Never Comments:Non smoking househo ld Sex and Gender Information Value Date Recorded Sex Assigned at Not on file Gender Identity Not on file Sexual Orientation Not on file Last Filed Vital Signs Vital Sign Reading Time Taken Comments Blood Pressure 110/74 05/06/2018 12:18 PM CLIENT SERVICES ASSOCIATE Pulse 77 06/04/2017 12:31 PM CDT Temperature 37 C (98.6 F) 05/06/2018 12:18 PM CLIENT SERVICES ASSOCIATE Respiratory Rate 16 05/06/2018 12:18 PM CLIENT SERVICES ASSOCIATE Oxygen Saturation 98% 05/06/2018 12:18 PM CLIENT SERVICES ASSOCIATE Inhaled Oxygen Concentration - - Weight 58.2 kg (128 lb 6.4 oz) 05/06/2018 12:18 PM CLIENT SERVICES ASSOCIATE Height 170.2 cm (5' 7 ) 05/06/2018 12:18 PM CLIENT SERVICES ASSOCIATE Body Mass Index 20.11 05/06/2018 12:18 PM CLIENT SERVICES ASSOCIATE Plan of Treatment Health Maintenance Due Date Last Done Comments PAP SMEAR 2000 HIV SCREENING 11/29/2015 HPV VACCINE (1 - 3-dose series) 11/29/2015 CHLAMYDIA/GONORRHEA SCREENING 2016 MENINGOCOCCAL (Group B) VACC INE (1 of 2 - Standard) 2016 HEPATITIS C SCREENING 11/24/2018 DTAP/TDAP/TD VACCINES (1 - Tdap) 11/29/2019 HEPATITIS B VACCINE (1 of 3 - 19+ 3-dose series) 11/29/2019 COVID-19 VACCINE ( - 2023-2 5 season) 2023 INFLUENZA VACCINE (#1) 2023 DEPRESSION SCREENING 03/08/2024 ZOSTER VACCINE (1 of 2) 2050 HIB VACCINE Aged Out No longer eligi ble based on patient's age to complete this topic MENINGOCOCCAL VACCINE Aged Out No markus ariela eligible based on patient's age to complete this topic PNEUMOCOCCAL VACCINE Aged Out No long er eligible based on patient's age to complete this topic Care Teams Food Service Assistant Relationship Specialty Start Date End Date Darell Tellez MD [address] [place], [place] [id number] PCP - General 06/25/17
--- OUTSIDE RECORDS SUMMARY | 2024-04-24 18:20 | XMS_ITS ---
Author Organization [facility] kenya Address [address] [place] [address] Care Team Providers Care Broach Grinder Name Role Phone Jessica RODRIGUEZ, Jose Manuel Primary Care Provider Alejandra Saldaña Unavailable [phone] REASON FOR VISIT 3 month follow up/flc Encounters Encounter Location Date Provider Diagnosis [facility] [address] [facility] [address] [place] [address] 03/09/2024 Alejandra Snider Plan Of Treatment No Information Progress Notes * Dominick SORENSONRainOB:[birth year] (23 yo F)Acc No.[id number]:03/09/2024 Progress Notes Patient: Ciera GILMORE Provider: Dara SNIDER MD :2000 A ge:23 Y S ex:Female Date:03/09/2024 Address:[address] [place] [address], [facility] Pcp:Jose Manuel Lopez MD Subjective: * Chief Complaints: * 1 . 3 month follow up/flc. * Medical History: Objective: * Vitals: Assessment: Plan: * Treatment: * Billing Information: * Visit Code: * Procedure Codes: * Electronic signature of Alejandra Snider MD on 04/24/2024 at 06:20 PM CLINICAL LABORATORY DIRECTOR Sign off status: Pending * Provider: Dara SNIDER MD Date: 03/09/2024 Generated for Froilan sykes/Nia/eTransmitting on: 0 04/24/2024 06:20 PM CLINICAL LABORATORY DIRECTOR
--- OUTSIDE RECORDS SUMMARY | 2024-04-24 18:20 | XMS_ITS | Patient Health Record ---
Author Organization [facility] kenya Address [address] [place] [address] Care Team Providers Care Preservationist Name Role Phone Jose Manuel Lopez MD Primary Care Provider Parul devonophelia HugginsAlejandra Unavailable [phone] Allergies Allergen (clinical drug ingredient) Drug/Non Drug Allergy documented on EMR Reaction Allergy Type Onset Date Status Amoxicillin-Pot Clavulanate Unknown Drug Allergy Active Reason For Referral No Information Medications Medication SIG (Take, Route, Frequency, Duration) Notes Start Date End Date Status Naproxen 500 MG 1 tablet with food o r milk as needed Orally every 12 hrs Active DULoxetine HCl 30 MG 1 capsule Orally On ce a day for 30 day(s) Active Amitriptyline HCl 10 MG 2 tablet at bedt catherine Orally Once a day for 30 day(s) Active Oic-Ue-Nbiizlrn 0.18/0.215/0.25 MG-25 MCG 1 tablet Orally Once a day for 28 day(s) Active Iron-Vitamin C Activ e Social History Tobacco Use: Social History Observation Description Date Details (start date - stop date) Never Smoker NA - NA Household Question Answer Notes Marital status: single Tobacco Control (Standard) Question Answer Notes Tobacco use: Nonsmoker Problems Problem Type SNOMED Code ICD Code Onset Dates Problem Status W/U Status Risk Notes Problem 68536733 Other chronic pain (G89.29) Active confirmed Problem 644074387 Fibromyalgia (M79.7) Active confirmed Vital Signs Heart Rate 96 /min 05/05/2023 Temperature 97.4 degrees Fahrenheit 05/05/2023 Blood pressure diastolic 68 mm Hg 05/05/2023 Oximetry 98 % 05/05/2023 Height 67 in 05/05/2023 Blood pressure systolic 118 mm Hg 05/05/2023 Weight 162.3 lbs 05/05/2023 BMI 25.42 kg/m2 05/05/2023 Encounters Encounter Location Date Provider Diagnosis [facility] [address] [place] [address] 05/05/2023 Alejandra Huggins Fibromyalgia M79.7 ; Irritable bowel syndrome, unspecified type K58.9 and Neck pain, musculoskeletal M54.2 Assessments Encounter Date Diagnosis (ICD Code) Assessment Notes Treatment Notes Treatment Clinical Notes Section Notes 05/05/2023 Fibromyalgia (ICD-10 - M79.7) change naproxen to mobic 15mg/day, continue cymbalta and elavil, continue PT, return in 3 months 05/05/2023 Irritable bowel syndrome, unspecified type (ICD-10 - K58.9) change naproxen to mobic 15mg/day, continue cymbalta and elavil, continue PT, return in 3 months 05/05/2023 Neck pain, musculoskeletal (ICD-10 - M54.2) change naproxen to mobic 15mg/day, continue cymbalta and elavil, continue PT, return in 3 months Plan Of Treatment Pending Test Test Name Order Date Creatine Kinase,Total,Serum 01/14/2023 G-6-PD, Quant, Blood and RBC 01/14/2023 CBC With Differential/Platelet Sedimentation Rate-Westergren 01/14/2023 Rheumatoid Arthritis Factor 01/14/2023 C-Reactive Protein, Quant 01/14/2023 HLA B 27 Disease Association 01/14/2023 Sjogren's Ab, Anti-SS-A/-SS-B 01/14/2023 CCP IgG Antibodies 01/14/2023 CLARA w/Reflex 01/14/2023 Hepatic Function Panel (7) 01/14/2023 Hepatitis C antibody 01/14/2023 Insurance Providers Payer Name Payer Address Payer Phone Subscriber Number Group Number Insured Name Patient Relationship to Insured Coverage Start Date Coverage End Date [employer] [address] [place] [address] [id number] Ciera Sorenson Self - patient is the insured Medical (General) History Medical History History ICD Code appendicitis IBS shoulder dislocation glenoid labral tear migraines Surgical History Surgery Date(Month/Year) hand surgery appendectomy
--- OUTSIDE RECORDS SUMMARY | 2024-04-24 18:20 | XMS_ITS | Patient Health Summary ---
Author Organization [facility] Address [address] [place] [address] Care Team Providers Care Spray Technician Name Role Phone Darell Tellez MD Primary Care Provider Note from [facility],non-owned Affiliates and Associated Physician Practices is amultiple site organization consisting of ambulatory clinics and hospital sitesin [place], [place], [place] and [place]. This disclosure is being madepursuant to the Care Everywhere program and may not contain all information available regarding this patient. Last updated 17.[facility] Allergies * Amoxicillin-Pot Clavulanate(Diarrhea) -Medium Criticality Medications * Be aware that medications may not be up to date on this document. Alwaysverify current medications with the patient. * levonorgestrel-ethinyl estradiol (DAYSEE) 0.15-0.03 &0.01 MG tablet(Started 05/26/2017) * SPIRONOLACTONE PO * Amitriptyline HCl * benzonatate (TESSALON) 200 MG capsule(Started 05/06/2018) Take 1 capsule by mouth 3 times daily as needed for Cough Active Problems Problem Noted Date Diagnosed Date Abdominal pain, LUQ (left upper quadrant) 2015 Perforated appendicitis 10/12/2011 Social History Tobacco Use Types Packs/Day Years Used Date Smoking Tobacco: Never Smokeless Tobacco: Never Comments:Non smoking househo ld Sex and Gender Information Value Date Recorded Sex Assigned at Not on file Gender Identity Not on file Sexual Orientation Not on file Last Filed Vital Signs Vital Sign Reading Time Taken Comments Blood Pressure 110/74 05/06/2018 12:18 PM PLANT MAINTENANCE MANAGER Pulse 77 06/04/2017 12:31 PM CDT Temperature 37 C (98.6 F) 05/06/2018 12:18 PM PLANT MAINTENANCE MANAGER Respiratory Rate 16 05/06/2018 12:18 PM PLANT MAINTENANCE MANAGER Oxygen Saturation 98% 05/06/2018 12:18 PM PLANT MAINTENANCE MANAGER Inhaled Oxygen Concentration - - Weight 58.2 kg (128 lb 6.4 oz) 05/06/2018 12:18 PM PLANT MAINTENANCE MANAGER Height 170.2 cm (5' 7 ) 05/06/2018 12:18 PM PLANT MAINTENANCE MANAGER Body Mass Index 20.11 05/06/2018 12:18 PM PLANT MAINTENANCE MANAGER Procedures * STREP A SCREEN - POINT OF CARE (AMB) STL(Performed 05/10/2017) Performed for Influenza B * INFLUENZA A+B - POINT OF CARE (AMB)(Performed 05/10/2017) Performed for Influenza B * LAB RESULTS ORDER(Performed 07/28/2016) * LAB RESULTS ORDER(Performed 04/28/2016) * EGD(Performed 04/01/2016) * HELICOBACTER PYLORI UREASE (STL)(Performed 04/01/2016) Performed for Abdominal pain, LUQ (left upper quadrant) * DISACCHARIDASE ASSESS PANEL(Performed 04/01/2016) Performed for Abdominal pain, LUQ (left upper quadrant) * PATHOLOGY TISSUE EXAM (STL)(Performed 04/01/2016) Performed for Generalized abdominal pain * ESOPHAGOGASTRODUODENOSCOPY (EGD) BIOPSY(Performed 04/01/2016) * HCG URINE QUALITATIVE - POCT (IP) BEAKER(Performed 04/01/2016) * CULTURE STREP GROUP A(Performed 01/17/2016) Performed for Nasopharyngitis acute * STREP A SCREEN - POINT OF CARE (AMB) STL(Performed 01/17/2016) Performed for Nasopharyngitis acute * LAB RESULTS ORDER(Performed 07/18/2015) * PATHOLOGY/CYTOLOGY REPORT ORDER(Performed 09/15/2011) * LAB RESULTS ORDER(Performed 09/15/2011) * IMAGING/RADIOLOGY/XRAY RESULTS ORDER(Performed 09/15/2011) * PATHOLOGY TISSUE EXAM (STL)(Performed 09/08/2011) Performed for Acute appendicitis with rupture * CT OUTSIDE CONSULTATION(Performed 09/08/2011) Performed for Acute appendicitis with rupture * REPAIR UMBILICAL HERNIA (PEDIATRIC)(Performed 09/08/2011) Performed for Appendicitis * LAPAROSCOPIC APPENDECTOMY(Performed 09/08/2011) Performed for Appendicitis * LAPAROSCOPIC APPENDECTOMY Performed for Appendicitis Results * STREP A SCREEN (05/10/2017 2:16 PM PLANT MAINTENANCE MANAGER) Only the most recent of2 resultswithin the time period is included. Strep A Rapid POCT Negative Negative Strep A Internal Control Present Lot # [id number] Expiration Date 11 12 2018 Throat ENTIRE THROAT (SURFACE REGION OF NECK) / Unknown 05/10/2017 2:16 PM PLANT MAINTENANCE MANAGER [facility] - POINT OF CA RE ORDERABLES * (ABNORMAL) INFLUENZA A+B - POINT OF CARE (AMB) (05/10/2017 2:16 PM PLANT MAINTENANCE MANAGER) Influenza A Antigen Rapid Negative Negative Influenza B Antigen Rapid Positive(A) Negative Influenza Internal Control present NEGATIVE - POSITIVE Influenza Lot Number [id number] Influenza Expiration Date 03 15 2019 Other NASOPHARYNGEAL SWAB / Unknown 05/10/2017 2:16 PM PLANT MAINTENANCE MANAGER [facility] - POINT OF CA RE ORDERABLES * LAB RESULTS ORDER (07/28/2016 5:04 AM CDT) Only the most recent of4 resultswithin the time period is included. Narrative 07/28/2016 5:04 AM CDT Ordered by an unspecified provider. Scanned Document LAB - THERAPEUTIC DR UG MONITORING ORDERABLES * EGD (04/01/2016 12:17 PM PLANT MAINTENANCE MANAGER) Report Endoscopy POC _ Patient Name: Ciera Sorenson Date of : 2000 Admit Type: Outpatient Age: 15 Gender: Female Attending MD: Alyssa Castañeda , Order #: [id number] _ Procedure: Upper GI endoscopy Indications: Abdominal pain in the left upper quadrant Providers: Alyssa Castañeda Referring MD: Darell Tellez MD Medicines: Monitored Anesthesia Care Complications: No immediate complications. Estimated blood loss: Minimal. _ Procedure: After obtaining informed consent, the endoscope was passed under direct vision. Throughout the procedure, the patient's blood pressure, pulse, and oxygen saturations were monitored continuously. The Endoscope was introduced through the mouth, and advanced to the second part of duodenum. The Endoscope was introduced through the mouth, and advanced to the second part of duodenum. The upper GI endoscopy was accomplished without difficulty. The patient tolerated the procedure well. Findings: The examined esophagus was normal. Biopsies were taken with a cold forceps for histology. Estimated blood loss was minimal. Diffuse mild inflammation characterized by granularity was found in the entire examined stomach. Biopsies were taken with a cold forceps for Helicobacter pylori testing using CLOtest. Estimated blood loss was minimal. The examined duodenum was normal. Biopsies were taken with a cold forceps for histology. Estimated blood loss was minimal. Impression: - Normal esophagus. Biopsied. - Gastritis. Biopsied. - Normal duodenum. Biopsied. Recommendation: - Discharge patient to home (with parent). - Await pathology results. - Return to GI clinic in 4 weeks. Procedure Code(s): --- Professional --- 29384, Esophagogastroduo denoscopy, flexible, transoral; with biopsy, single or multiple --- Technical --- 50872, Esophagogastroduo denoscopy, flexible, transoral; with biopsy, single or multiple Diagnosis Code(s): --- Professional --- R10.12, Left upper quadrant pain --- Technical --- R10.12, Left upper quadrant pain CPT copyright 2015 [employer]. All rights reserved. The codes documented in this report are preliminary and upon nutritional yeast supervisor review may be revised to meet current compliance requirements. Dr. Alyssa Castañeda MD Alyssa Castañeda, 04/01/2016 11:50:50 AM Number of Addenda: 0 Note Initiated On: 03/31/2016 12:17 PM Procedure Date: 04/01/2016 12:17:00 PM This report has been signed electronically. [facility] 04/01/2016 12:1 7 PM PLANT MAINTENANCE MANAGER Alyssa Castañeda MD GI PROCEDURE ORDERAB LES Performing Organization Address [facility] de Phone Number [facility] [address] [place] [address] * HELICOBACTER PYLORI UREASE (STL) (04/01/2016 11:34 AM PLANT MAINTENANCE MANAGER) Helicobacter pylori Urease Initial Negative Negative 04/02/2016 1:57 PM PLANT MAINTENANCE MANAGER [facility] Helicobacter pylori Urease Final Negative Negative 04/02/2016 1:57 PM PLANT MAINTENANCE MANAGER [facility] Comment:This is an appended report. These results have been appended to a previously preliminary verified report. Microbiology GASTRIC BIOPSY SPECIMEN / Unknown 04/01/2016 11:34 AM PLANT MAINTENANCE MANAGER 04/01/2016 11:47 AM PLANT MAINTENANCE MANAGER Alyssa Castañeda MD LAB - MICROBIOLOGY O RDERABLES Performing Organization Address [facility] Co de Phone Number [facility] [address] [place] [address] * (ABNORMAL) DISACCHARIDASE ASSESS PANEL (04/01/2016 11:25 AM PLANT MAINTENANCE MANAGER) Lactase 40.04 15.00 - 45.50 umol/min/ g prot 04/08/2016 2:14 PM PLANT MAINTENANCE MANAGER [facility] Sucrase 67.11 25.00 - 69.90 umol/min/ g prot 04/08/2016 2:14 PM PLANT MAINTENANCE MANAGER [facility] Maltase 288.74(H) umol/min/ g prot 04/08/2016 2:14 PM PLANT MAINTENANCE MANAGER [facility] Comment:REFERENCE RANGE: 100 .00-224.40 Palatinase 16.31 5.00 - 26.30 umol/min/ g prot 04/08/2016 2:14 PM PLANT MAINTENANCE MANAGER [facility] Comment: The performance characteristics of the listed assay was validated by [facility]. The [place] FDA has not approved or cleared this test. The results of these assay can be used for clinical diagnosis without FDA approval. [facility] is a CLIA certified, CAP accredited laboratory for performing high complexity assays such as this one. Blood SMALL BOWEL RESECTION SPECIMEN / Unknown 04/01/2016 11:25 AM PLANT MAINTENANCE MANAGER 04/01/2016 11:47 AM PLANT MAINTENANCE MANAGER Narrative [facility] - 04/08/2016 2:14 PM PLANT MAINTENANCE MANAGER Performed at: - [facility] [address] [place] [address] [id number] Logging Crew Foreman: Brandon Byrnes PhD, Phone: [phone] Alyssa Castañeda MD LAB - CHEMISTRY LEONILA MCFARLANE [facility] ([facility]) [address] [place] [address] * GROSS + MICRO EXAM (STL) (04/01/2016 11:19 AM PLANT MAINTENANCE MANAGER) Only the most recent of2 resultswithin the time period is included. Case Report Surgical Pathology Report Case: [id number] Authorizing Provider: Alyssa Castañeda MD Collected: 04/01/2016 11:19 AM Ordering Location: ENDOSCOPY SERVICES Received: 04/01/2016 12:06 PM Pathologist: Godwin Haley MD Specimens: A) - Duodenal Biopsy B) - Stomach Biopsy C) - Esophageal Biopsy 04/03/2016 11:15 AM [facility] Final Diagnosis A) SMALL INTESTINE, DUODENUM, BIOPSY: - NO PATHOLOGIC DIAGNOSIS. B) STOMACH, BIOPSY: - NO PATHOLOGIC DIAGNOSIS. C) ESOPHAGUS, BIOPSY: - NO PATHOLOGIC DIAGNOSIS. 04/03/2016 11:15 AM [facility] Clinical History The patient is a 15-year-old girl with abdominal pain who underwent upper endoscopy. The endoscopic finding was mild gastritis. 04/03/2016 11:15 AM [facility] Gross Description The specimens are received fixed in formalin in three containers for gross and microscopic examination. All containers are labeled with the patient's name, Ciera Sorenson. Specimen A, duodenal biopsy, consists of two 4-mm soft, yellow-brown tissue fragments, submitted in toto as A1. Specimen B, stomach biopsy, consists of three soft, yellow-brown tissue fragments, 3 mm to 4 mm in greatest dimension. The specimen is submitted in toto as B1. Specimen C, esophageal biopsy, consists of a 2-mm soft, mitchell-pink tissue fragment, submitted in toto as C1. (CT/ns) 04/03/2016 11:15 AM [facility] Microscopic Description A) 3 H&E; B) 3 H&E; C) 3 H&E. Sections of specimen A show fragments of unremarkable duodenal mucosa. Sections of specimen B show fragments of unremarkable gastric mucosa. Sections of specimen C show a single fragment of unremarkable esophageal epithelium. (DSB) 04/03/2016 11:15 AM [facility] Disclaimer The performance characteristics of all immunohistochemical and indirect immunofluorescence stains (if any) cited in this report were determined by the Histopathology Laboratory of [facility]. Some of these tests were developed by our own laboratory and have not been cleared or approved by the US Food and Drug Administration (FDA). The FDA does not require this test to go through premarket FDA review. These tests are used for clinical purposes. They should not be regarded as investigational or for research. This laboratory is certified under the Clinical Laboratory Improvement Amendments (CLIA) as qualified to perform high complexity clinical laboratory testing. This case has been personally reviewed and interpreted by the attending (teaching) pathologist. 04/03/2016 11:15 AM PLANT MAINTENANCE MANAGER [facility] Embedded Images 04/03/2016 11:15 AM PLANT MAINTENANCE MANAGER [facility] Pathology/Cytology ESOPHAGEAL BIOPSY SPECIMEN / Unknown 04/01/2016 11:19 AM PLANT MAINTENANCE MANAGER 04/01/2016 12:06 PM PLANT MAINTENANCE MANAGER Miscellaneous samples (specimen) BIOPSY OF STOMACH / Unknown 04/01/2016 11:19 AM PLANT MAINTENANCE MANAGER 04/01/2016 12:06 PM PLANT MAINTENANCE MANAGER Miscellaneous samples (specimen) ESOPHAGEAL BIOPSY SPECIMEN / Unknown 04/01/2016 11:19 AM PLANT MAINTENANCE MANAGER 04/01/2016 12:06 PM PLANT MAINTENANCE MANAGER Alyssa Castañeda MD LAB - PATHOLOGY/CYTO LOGY ORDERABLES [facility] [address] [place] [address] * HCG URINE QUALITATIVE - POCT (IP) ANTELMO (04/01/2016 10:40 AM PLANT MAINTENANCE MANAGER) HCG Qual Urine Negative Negative [facility] QC Verified Yes Yes [facility] PO CT TESTING Urine URINE / Unknown 04/01/2016 1 0:40 AM PLANT MAINTENANCE MANAGER Alyssa Castañeda MD LAB - POINT OF CARE ORDERABLES Performing Organization Address [facility] Co de Phone Number [facility] PO[facility] TEST[facility] [address] [phone] * CULTURE STREP GROUP A (01/17/2016 3:26 PM PLANT MAINTENANCE MANAGER) Beta-Strep Culture, Group A Only Negative [facility] ACCOUNT BILL Microbiology ENTIRE THROAT (SURFACE REGION OF NECK) / Unknown 01/17/2016 3:26 PM PLANT MAINTENANCE MANAGER 01/17/2016 Narrative Resulting Agency Comment [facility] [place] [id number] [facility] [id number] Clarita ASHLEY LAB - MICROBIOLOGY ORDERABLES [facility] ACCOUNT BILL [address] [address] * PATHOLOGY/CYTOLOGY REPORT ORDER (09/15/2011 12:15 PM CDT) Narrative Transcriptions Document, Scanned - 09/15/2011 12:15 PM CDT Scanned Document LAB - PATHOLOGY/CYTO LOGY ORDERABLES * IMAGING/RADIOLOGY/XRAY RESULTS ORDER (09/15/2011 12:15 PM CDT) Anatomical Region Laterality Modality Other Narrative Transcriptions Document, Scanned - 09/15/2011 12:15 PM CDT Scanned Document IMAGING * CT OUTSIDE CONSULTATION (09/08/2011 8:45 PM CDT) Anatomical Region Laterality Modality Computed Tomogra phy 09/10/2011 8:52 AM CDT Impressions 09/10/2011 8:52 AM CDT Fluid collection surrounded by inflammatory changes in the right pelvis with early phlegmon/abscess formation. Free fluid in the pelvis consistent with perforated appendicitis. Left upper quadrant small bowel ileus. Narrative 09/10/2011 8:[address] outside consultation Consultation date: 09/10/2011 And examination was performed on September 07. Exam is submitted today for review. Images were obtained at [facility] in [place], [place] on September 07 at 1723 hours. 496 images were obtained including chute man images, axial tomograms of 2.5 mm thickness, coronal and sagittal reformats. Image also includes they request for outside consultation from Dr. Ashely Blanca and the outside report from Dr Kei Neville. Liver, spleen, pancreas and both kidneys are normal. There is no intra or extrahepatic biliary dilatation. Lung bases are clear. There is no effusion or pneumothorax. Gallbladder is normal in appearance. Contrast is seen within the stomach in several proximal small bowel loops. Bowel loops in the left upper quadrant which are small bowel show distention consistent with focal left upper quadrant ileus. Fluid is identified in the right paracolic gutter. Inflammatory changes are seen in the right pelvis on image 102 of series 3 with fluid signal and edema. Fluid collection is present in the pelvis in the prerectal space with minimal edge enhancement. The appearance suggests a ruptured appendicitis with early inflammatory changes consistent with phlegmon in the pelvis and a subtle early abscess in the right pelvis on image 103 of series 3. An appendix is not definitely imaged. A radiodensity seen on image 85 of series 3 is noted which may be a retrocecal appendicolith in nondistended appendix or may represent a small amount of oral contrast material which has made it to the cecum. Procedure Note Jacob Pitt MD - 09/10/2011 CT outside consultation Consultation date: 09/10/2011 And examination was performed on September 07. Exam is submitted today for review. Images were obtained at [facility] in [place], [place] on September 07 at 1723 hours. 496 images were obtained including chute man images, axial tomograms of 2.5 mm thickness, coronal and sagittal reformats. Image also includes they request for outside consultation from Dr. Ashely Blanca and the outside report from Dr Kei Neville. Liver, spleen, pancreas and both kidneys are normal. There is no intra or extrahepatic biliary dilatation. Lung bases are clear. There is no effusion or pneumothorax. Gallbladder is normal in appearance. Contrast is seen within the stomach in several proximal small bowel loops. Bowel loops in the left upper quadrant which are small bowel show distention consistent with focal left upper quadrant ileus. Fluid is identified in the right paracolic gutter. Inflammatory changes are seen in the right pelvis on image 102 of series 3 with fluid signal and edema. Fluid collection is present in the pelvis in the prerectal space with minimal edge enhancement. The appearance suggests a ruptured appendicitis with early inflammatory changes consistent with phlegmon in the pelvis and a subtle early abscess in the right pelvis on image 103 of series 3. An appendix is not definitely imaged. A radiodensity seen on image 85 of series 3 is noted which may be a retrocecal appendicolith in nondistended appendix or may represent a small amount of oral contrast material which has made it to the cecum. IMPRESSION Fluid collection surrounded by inflammatory changes in the right pelvis with early phlegmon/abscess formation. Free fluid in the pelvis consistent with perforated appendicitis. Left upper quadrant small bowel ileus. Ashely Corbett MD CT ORDERABLES Care Teams Spray Technician Relationship Specialty Start Date End Date Darell Tellez MD [address] [place] [address] PCP - General 06/25/17
--- OUTSIDE RECORDS SUMMARY | 2024-04-24 18:20 | XMS_ITS ---
Author Organization [facility] [place] Address [address], [place] [address] Care Team Providers Care Director Marketing Name Role Phone Jose Manuel Lopez MD Primary Care Provider Alejandra Saldaña Unavailable [phone] Allergies Allergen (clinical drug ingredient) Drug/Non Drug Allergy documented on EMR Reaction Allergy Type Onset Date Status Amoxicillin-Pot Clavulanate Unknown Drug Allergy Active REASON FOR VISIT lab results/flc Medications Medication SIG (Take, Route, Frequency, Duration) Notes Start Date End Date Status Naproxen 500 MG 1 tablet with food o r milk as needed Orally every 12 hrs Active Ftq-Ud-Qekpndiy 0.18/0.215/0.25 MG-25 MCG 1 tablet Orally Once a day for 28 day(s) Active Amitriptyline HCl 10 MG 2 tablet at bedt catherine Orally Once a day for 30 day(s) Active DULoxetine HCl 30 MG 1 capsule Orally On ce a day for 30 day(s) Active Social History Tobacco Use: Social History Observation Description Date Details (start date - stop date) Never Smoker NA - NA Household Question Answer Notes Marital status: single Tobacco Control (Standard) Question Answer Notes Tobacco use: Nonsmoker Problems Problem Type SNOMED Code ICD Code Onset Dates Problem Status W/U Status Risk Notes Problem [id number] Fibromyalgia (M79.7) Active confirmed Encounters Encounter Location Date Provider Diagnosis [facility] [address] [facility] [place] [address] 02/02/2023 Alejandra Snider Fibromyalgia M79.7 a nd Irritable bowel syndrome, unspecified type K58.9 Assessments Encounter Date Diagnosis (ICD Code) Assessment Notes Treatment Notes Treatment Clinical Notes Section Notes 02/02/2023 Fibromyalgia (ICD-10 - M79.7) serologies (-), likely fibromyalgia, continue cymbalta, naxproxen and elavil, continue PT, return in 3 months 02/02/2023 Irritable bowel syndrome, unspecified type (ICD-10 - K58.9) serologies (-), likely fibromyalgia, continue cymbalta, naxproxen and elavil, continue PT, return in 3 months Plan Of Treatment Next Appt Details Follow Up: 3 Months, Reason: f/u Progress Notes * Carina SORENSONOB:[birth year] (22 yo F)Acc No.[id number]:02/02/2023 Patient: Ciera GIMLORE Provider: Dara SNIDER MD :2000 A ge:22 Y S ex:Female Date:02/02/2023 Address:[address] [place] [address], [place] [address] Pcp:Jose Manuel Lopez MD Subjective: * Chief Complaints: * L ab results/flc * HPI: G eneral Follow up: Synchronous video/audio telecommunication with [place] Patient has agreed to telehealth visit and is aware insurance will be billed for this visit Location: patient at home, physician in office. m ultiple complaints: on naproxen 500mg bid. It bothers her stomach. increased cymbalta to 60mg/day yesterday, on amitriptyine (for stomach pain), She has seen a pain specialist and had MRI of cervical spine. Injection only lasted for 3 weeks. hips, back and neck aching, receiving PT and OT 22 year old female with multiple complaints including a bdominal pain, diarrhea, bone pain, fatigue and facial rash. EGD showed inflammation per patient. Training And Development Rep diagnosed her with rosacea. ROS: No oral ulcers, +dry mouth, no dry eyes, +facial rash, no hair loss, +photosensitivity, no Raynaud's 01/14/23, CLARA (-), RF/CCP/SSA/SSB (-), HLA-B27 (-), ESR, CRP, CK normal, HBV/HCV (-), LFTs normal, Hb 11.4, WBC and platelets normal 12/2022, BMP normal, vit D normal, TSH normal 07/13/22, CLARA (-), anti-DNA/SM/LOCAL DELIVERY TRUCK DRIVER/SCL70/SSA/SSB (-), ESR normal. * ROS: G eneral / Constitutional: Patient denies c hange in appetite, chills, fatigue, fever, weight loss, weakness. C omments S HPI for details. M usculoskeletal: Comments S HPI for details. S kin: Comments S HPI for details . N eurologic: Patient denies d izziness, gait abnormality, headache, tingling / numbness . * Medical History: * Surgical History: h and surgery appendectomy * Hospitalization/Major Diagno stic Procedure: * Family History: heart disease, breast cancer, kidney disease. * Social History: T obacco Use: T obacco Control (Standard) T obacco use: N onsmoker. D rug/Alcohol: D o you drink alcohol?: Socially. H ousehold: H ousehold M arital status: s raheel. M iscellaneous: E xercise: 3-4 times a week. * Medications: T akingNaproxen 500 MG Tablet 1 tablet with food or milk as needed Orally every 12 hrs DULoxetine HCl 30 MG Capsule Delayed Release Particles 1 capsule Orally Once a day Amitriptyline HCl 10 MG Tablet 2 tablet at bedtime Orally Once a day Hua-Sn-Lyufznwk 0.18/0.215/0.25 MG-25 MCG Tablet 1 tablet Orally Once a day Taking Naproxen 500 MG Tablet 1 tablet with food or milk as needed Orally every 12 hrs Taking DULoxetine HCl 30 MG Capsule Delayed Release Particles 1 capsule Orally Once a day Taking Amitriptyline HCl 10 MG Tablet 2 tablet at bedtime Orally Once a day Taking Gfd-Dw-Fkitadxt 0.18/0.215/0.25 MG-25 MCG Tablet 1 tablet Orally Once a day * Allergies: A moxicillin-Pot Clavulanateno[Allergies Verified] Objective: * Vitals: * Examination: G eneral Examination: General appearance: a lert, well-nourished and in no acute distress. Head: n ormocephalic, atraumatic. Eyes: n ormal. Skin: n o rash. Lungs: r espiratory effort normal. P sychiatry: Affect / mood: n ormal affect, normal mood. ? N eurology: s peech normal. Assessment: * Assessment: 1. F ibromyalgia - M79.7 (Primary) 2 . I rritable bowel syndrome, unspecified type - K58.9 serologies (-), likely fibro myalgia, continue cymbalta, naxproxen and elavil, continue PT, return in 3 months. Plan: * Treatment: * Procedure Codes: * Follow Up: 3 Months (Reason: f/u) * Billing Information: * Visit Code: 35746 Office Visit, Est Pt., Level 4. Modifiers: 95 * Procedure Codes: * ITURE TECHNICIAN Sign off status: Completed true * Provider: Dara SNIDER MD Date: 04/04/2022 Generated for Froilan sykes/Nia/Gene on: 0 04/24/2024 06:20 PM FURNITURE TECHNICIAN History and Physical Notes * HPI (History of Present Illness) Category Sub-Category Detail Notes Category Not es General Follow up Synchronous video/audio telecommunication with [place] Patient has agreed to telehealth visit and is aware insurance will be billed for this visit Location: patient at home, physician in office multiple complaints on naproxen 500mg bid. It bothers her stomach. increased cymbalta to 60mg/day yesterday, on amitriptyine (for stomach pain), She has seen a pain specialist and had MRI of cervical spine. Injection only lasted for 3 weeks. hips, back and neck aching, receiving PT and OT 22 year old female with multiple complaints including abdominal pain, diarrhea, bone pain, fatigue and facial rash. EGD showed inflammation per patient. Training And Development Rep diagnosed her with rosacea. ROS: No oral ulcers, +dry mouth, no dry eyes, +facial rash, no hair loss, +photosensitivity, no Raynaud's 01/14/23, CLARA (-), RF/CCP/SSA/SSB (-), HLA-B27 (-), ESR, CRP, CK normal, HBV/HCV (-), LFTs normal, Hb 11.4, WBC and platelets normal 12/2022, BMP normal, vit D normal, TSH normal 07/13/22, CLARA (-), anti-DNA/SM/LOCAL DELIVERY TRUCK DRIVER/SCL70/SSA/SSB (-), ESR normal Examination Category Sub-Category Detail Notes Category Not es Neurology speech normal Psychiatry Affect / mood: normal affect, normal mood General Examination General appearance: alert, w ell-nourished and in no acute distress Head: normocephalic, atrau matic Eyes: normal Lungs: respiratory effort n ormal Skin: no rash
--- OUTSIDE RECORDS SUMMARY | 2024-04-24 18:20 | XMS_ITS | Referral Summary ---
Author Organization [facility] Address [address] [address] Care Team Providers Care Textile Designer Name Role Phone Darell Tellez MD Primary Care Provider [phone] Source Comments [facility],non-owned Affiliates and Associated Physician Practices is amultiple site organization consisting of ambulatory clinics and hospital sitesin [place], [place], [place] and [place]. This disclosure is being madepursuant to the Care Everywhere program and may not contain all information available regarding this patient. Last updated 17.[facility] Allergies Active Allergy Reactions Criticality Noted Date [...] Comments Blood Pressure 110/74 05/06/2018 12:18 PM FIRMWARE MANAGER Pulse 77 06/04/2017 12:31 PM CDT Temperature 37 C (98.6 F) 05/06/2018 12:18 PM FIRMWARE MANAGER Respiratory Rate 16 05/06/2018 12:18 PM FIRMWARE MANAGER Oxygen Saturation 98% 05/06/2018 12:18 PM FIRMWARE MANAGER Inhaled Oxygen Concentration - - Weight 58.2 kg (128 lb 6.4 oz) 05/06/2018 12:18 PM FIRMWARE MANAGER Height 170.2 cm (5' 7 ) 05/06/2018 12:18 PM FIRMWARE MANAGER Body Mass Index 20.11 05/06/2018 12:18 PM FIRMWARE MANAGER Functional Status Functional Status Response Date of Assess ment Is person deaf or have serious hearing difficult y? No 04/01/2016 Is person blind or have serious difficulty seein g? No 04/01/2016 Does person have serious dif ficulty walking/climbing stairs? No 04/01/2016 Does person have difficulty dressing/bathing? No 04/01/2016 Does person have difficulty doing errands alone? No 04/01/2016 Cognitive Status Response Date of Assessm ent Does person have difficulty concentrating/remembering/making decisions? No 04/01/2016 Plan of Treatment Not on file Care Teams Textile Designer Relationship Specialty Start Date End Date Darell Tellez MD [address] [place] [address] PCP - General 06/25/17
--- OUTSIDE RECORDS SUMMARY | 2024-04-24 18:21 | XMS_ITS ---
Author Organization [facility] kenya Address [address] [place] [address] Care Team Providers Care Cardiopulmonary Physical Therapist Name Role Phone Jose Manuel Lopez MD Primary Care Provider Parul SniderAlejandra Unavailable [phone] Allergies Allergen (clinical drug ingredient) Drug/Non Drug Allergy documented on EMR Reaction Allergy Type Onset Date Status Amoxicillin-Pot Clavulanate Unknown Drug Allergy Active REASON FOR VISIT 3 month f/u, lab results/flc Medications Medication SIG (Take, Route, Frequency, Duration) Notes Start Date End Date Status Meloxicam 15 MG 1 tablet Orally Once a day for 30 days 05/05/2023 08/03/2023 Active DULoxetine HCl 30 MG 1 capsule Orally On ce a day for 30 day(s) Active Amitriptyline HCl 10 MG 2 tablet at bedt catherine Orally Once a day for 30 day(s) Active Kox-Eh-Jtspxplu 0.18/0.215/0.25 MG-25 MCG 1 tablet Orally Once a day for 28 day(s) Active Iron-Vitamin C Activ e Naproxen 500 MG 1 tablet with food o r milk as needed Orally every 12 hrs Active Social History Tobacco Use: Social History Observation Description Date Details (start date - stop date) Never Smoker NA - NA Household Question Answer Notes Marital status: single Tobacco Control (Standard) Question Answer Notes Tobacco use: Nonsmoker Vital Signs Temperature 97.4 degrees Fahrenheit 05/05/19 24 Blood pressure systolic 118 mm Hg 05/05/19 24 Blood pressure diastolic 68 mm Hg 024 Heart Rate 96 /min 05/05/2023 Height 67 in 05/05/2023 Weight 162.3 lbs 05/05/2023 BMI 25.42 kg/m2 05/05/2023 Oximetry 98 % 05/05/2023 Encounters Encounter Location Date Provider Diagnosis [facility] [address] [place] [address] 05/05/2023 Alejandra Snider Fibromyalgia M79.7 ; Irritable bowel syndrome, unspecified [...] return in 3 months Plan Of Treatment Medication Medication Name Sig Start Date Stop Date Notes Meloxicam 15 MG 1 tablet Orally Once a day for 30 days 08/03/2023 Next Appt Details Follow Up: 3 Months, Reason: Progress Notes * Dominick SORENSONRainOB:[birth year] (22 yo F)Acc No.[id number]:05/05/2023 Progress Notes Patient: Ciera GILMORE Provider: Dara SNIDER MD :2000 A ge:22 Y S ex:Female Date:05/05/2023 Address:[address] [place] [address], [facility] Pcp:Jose Manuel Lopez MD Subjective: * Chief Complaints: * 3 month f/uLab results/flc * HPI: G eneral Follow up: neck, shoulders aching, on naproxen 500mg prn It bothers her stomach. not helping much, on cymbalta to 60mg/day, on amitriptyine (for stomach pain), She has seen a pain specialist and had MRI of cervical spine. Injection only lasted for 3 weeks. receiving PT and OT, doing deep massage and dry needling, helping a little, feels tired took celebrex before 22 year old female with multiple complaints including a bdominal pain, diarrhea, bone pain, fatigue and facial rash. EGD showed inflammation per patient. Checker Cashier diagnosed her with rosacea. ROS: No oral ulcers, +dry mouth, no dry eyes, +facial rash, no hair loss, +photosensitivity, no Raynaud's 01/14/23, CLARA (-), RF/CCP/SSA/SSB (-), HLA-B27 (-), ESR, CRP, CK normal, HBV/HCV (-), LFTs normal, Hb 11.4, WBC and platelets normal 12/2022, BMP normal, vit D normal, TSH normal 07/13/22, CLARA (-), anti-DNA/SM/TRAIN PLANNER/SCL70/SSA/SSB (-), ESR normal. * ROS: G eneral / Constitutional: Patient denies f alejandro, chills. P atient complains of?fatigue. M usculoskeletal: Patient complains of s ee HPI. S kin: Patient denies r kelsey. * Medical History: * Surgical History: h [...] 3-4 times a week. * Medications: T akingIron-Vitamin C Hwo-Sl-Icpexjkp 0.18/0.215/0.25 MG-25 MCG Tablet 1 tablet Orally Once a day Amitriptyline HCl 10 MG Tablet 2 tablet at bedtime Orally Once a day DULoxetine HCl 30 MG Capsule Delayed Release Particles 1 capsule Orally Once a day Naproxen 500 MG Tablet 1 tablet with food or milk as needed Orally every 12 hrs Medication List reviewed and reconciled with the patientTaking Iron-Vitamin C Taking Jch-Cc-Snphncnh 0.18/0.215/0.25 MG-25 MCG Tablet 1 tablet Orally Once a day Taking Amitriptyline HCl 10 MG Tablet 2 tablet at bedtime Orally Once a day Taking DULoxetine HCl 30 MG Capsule Delayed Release Particles 1 capsule Orally Once a day Taking Naproxen 500 MG Tablet 1 tablet with food or milk as needed Orally every 12 hrs Medication List reviewed and reconciled with the patient * Allergies: A moxicillin-Pot Clavulanateno[Allergies Verified] Objective: * Vitals: B P:118/68mm Hg, HR:96/min, Temp:97.4F, Oxygen sat %:98%, Wt:162.3lbs, Ht:67in, BMI:25.42Index. * Examination: G eneral Examination: General appearance: a lert, well-nourished and in no acute distress. Head: n ormocephalic, atraumatic. Eyes: n ormal. Skin: n o rash. Lungs: r espiratory effort normal. N eurology: Speech: n ormal. P sychiatry: Affect / mood: a ppropriate. R heumatology: n o synovitis, trigger points: anterior chest wall, trapezius, scapular, hips, +pain in shoulders with abduction. Assessment: * Assessment: 1. F ibromyalgia - M79.7 (Primary) 2 . I rritable bowel syndrome, unspecified type - K58.9 3 . N henrique pain, musculoskeletal - M54.2 change naproxen to mobic 15m g/day, continue cymbalta and elavil, continue PT, return in 3 months. Plan: * Treatment: * Procedure Codes: * Follow Up: 3 Months * Billing Information: * Visit Code: 58475 Office Visit, Est Pt., Level 4. * Procedure Codes: * EDICAL SCIENTIST Sign off status: Completed true * Provider: Dara SNIDER MD Date: 05/05/2023 Generated for Froilan sykes/Nia/Gene on: 04/24/2024 06:20 PM BIOMEDICAL SCIENTIST History and Physical Notes * HPI (History of Present Illness) Category Sub-Category Detail Notes Category Not es General Follow up neck, shoulders aching, on naproxen 500mg prn It bothers her stomach. not helping much, on cymbalta to 60mg/day, on amitriptyine (for stomach pain), She has seen a pain specialist and had MRI of cervical spine. Injection only lasted for 3 weeks. receiving PT and OT, doing deep massage and dry needling, helping a little, feels tired took celebrex before 22 year old female with multiple complaints including abdominal pain, diarrhea, bone pain, fatigue and facial rash. EGD showed inflammation per patient. Checker Cashier diagnosed her with rosacea. ROS: No oral ulcers, +dry mouth, no dry eyes, +facial rash, no hair loss, +photosensitivity, no Raynaud's 01/14/23, CLARA (-), RF/CCP/SSA/SSB (-), HLA-B27 (-), ESR, CRP, CK normal, HBV/HCV (-), LFTs normal, Hb 11.4, WBC and platelets normal 12/2022, BMP normal, vit D normal, TSH normal 07/13/22, CLARA (-), anti-DNA/SM/TRAIN PLANNER/SCL70/SSA/SSB (-), ESR normal Examination Category Sub-Category Detail Notes Category Not es Rheumatology no synovitis, trigger points: anterior chest wall, trapezius, scapular, hips, +pain in shoulders with abduction Neurology Speech: normal Psychiatry Affect / mood: appropriate General Examination General appearance: alert, w ell-nourished and in no acute distress Head: normocephalic, atrau matic Eyes: normal Lungs: respiratory effort n ormal Skin: no rash
--- OUTSIDE RECORDS SUMMARY | 2024-04-24 18:21 | XMS_ITS | Clinical Summary ---
Author Organization [facility] Address [address] [place] [address] Care Team Providers Care Oracle Webcenter Consultant Name Role Phone Lisa Cleveland NP Primary Care Provider [phone] Allergies Active Allergy Reactions Criticality Noted Date [...] Reviewed all records. EGD and Biopsies at [facility] were all normal. She feels better opn [...] Has apparently had eval and follow at [facility] so will get those records. pc Epi bloat,cramp 4 years with D/C. Bentyl and elavil bith help sx but bentyl makds her dizzy. 3 yrs ago rectal bleed and none since. Active high school student. PE neg. Discussed likelihood ibs but offered full eval. She agrees to bentyl 10 30min ac and hs and continue the elavil 20 hs. Review [facility] records and return 3 weeks. Status post repair of glenoid labrum 11/05/2017 Glenoid labral tear, right, initial encounter Overview (10/11/2017): Added automatically from request for surgery [id number] Closed anterior dislocation of right shoulder Overview (10/11/2017): Added automatically from request for surgery [id number] Right upper quadrant abdominal pain 06/14/2017 Assessment & Plan (06/20/2017 9:33 AM CDT): Plan to check FINANCIAL SERVICES AUDITOR, Amylase and lipase. Arrange US of abdomen. [...] Unspecified 12/13/2001,0 08/30/2001 Tdap 07/19/2012 Varicella 10/04/2006,12/13/2001 Surgical History Surgery Date Site/Laterality Comments HAND SURGERY Left Osteotomy APPENDECTOMY Medical History Medical History Date Comments Dislocation of right shoulder joint Migraines Family History Medical History Relation Name Comments Heart disease Maternal Grandfather Kidney disease Maternal Grandfather Heart disease Paternal Grandfather Kidney disease Paternal Grandfather Breast cancer Paternal Grandmother Relation Name Status Comments Father Alive Maternal Grandfather Maternal Grandmother Alive Mother Alive Paternal Grandfather Alive Paternal Grandmother Alive Social History Tobacco Use Types Packs/Day Years Used Date Smoking Tobacco: Never Smokeless Tobacco: Never Alcohol Use Standard Drinks/Week Comments No 0 (1 standard drink = 0.6 oz pur e alcohol) Comments No Sex and Gender Information Value Date Recorded Sex Assigned at Not on file Legal Sex Female 1:06 AM AIRLINE PILOT FLIGHT INSTRUCTOR Gender Identity Not on file Sexual Orientation Not on file Obstetrics History Last Filed Vital Signs Vital Sign Reading [...] 08/29/2018 2:07 PM CDT Plan of Treatment Health Maintenance Due Date Last Done Comments Cervical Cancer Screening 2000 Meningococcal B Vaccine (1 of 2 - Patient Seeks Protection) 2016 Depression Screening 06/14/2018 06/14/2017, 09/29/19 17 Regular Well Visit/Exam 18-64 2018 HPV Vaccines (3 - 3-dose series) 06/17/2020 03/25/2020, 01/25/2019 Covid-19 Vaccine ( season) 2023 12/09/2022, 02/06/2021, 05/31/2020, Additional history exists Influenza Vaccine (#1) 2023 , 12/10/2021, 12/30/2020, Additional history exists DTaP/Tdap/Td Vaccine (8 - Td or Tdap) 06/07/2031 06/06/2021, 07/19/2012, 10/07/2005, Additional history exists Pneumococcal vaccine <65 Aged Out 12/13/2001, 08/07 No longer eligible based on patient's age to complete this topic Varicella Vaccines Completed 10/04/2006, 12/13/2001 Hepatitis C Screening Completed 01/14/2023 Medical Devices Implanted Type Area Virtual Classroom Manager Device Identifier Shelf Expiration Date Model / Serial / Lot [employer] [id number] Pushlock 2.9mm 12.5mm Cannulated Eyelet Handle Senior Business Broker Short - [id number] Implanted:Qty: 3 on 10/21/2017 by aJy Feliz MD at [facility] Right: Shoulder [employer] 06/06/2019 AR-[id number] / / [id number] Ar[employer]rex Labral Tape 1.5mm Implanted:Qty: 4 on 10/21/2017 by Jay Feliz MD at [facility] Right: Shoulder [employer] [id number] 02/04/2022 [id number] / / [id number] [employer] Ar-[id number] Pushlock 2.9mm 12.5mm Cannulated Eyelet Handle Senior Business Broker Short - [id number] Implanted:Qty: 1 on 10/21/2017 by Jay Feliz MD at [facility] Right: Shoulder [employer] 01/05/2019 AR-[id number] / / [id number] Procedures Procedure Name Priority Date/Time Associated Diagnosis Comments HEPATITIS C ANTIBODY Routine 01/14/2023 3:09 PM AIRLINE PILOT FLIGHT INSTRUCTOR from Last 3 Months or Most Recently Relevant to Health Maintenance Results * Hepatitis C antibody Blood (01/14/2023 3:09 PM AIRLINE PILOT FLIGHT INSTRUCTOR) Hep C Ab Nonreactive Nonreactive [facility] Comment: Interpretive Data Nonreactive: Antibodies to HCV [...] revised on 2019. Blood 01/14/2023 3:09 PM AIRLINE PILOT FLIGHT INSTRUCTOR 01/14/2023 5:42 PM AIRLINE PILOT FLIGHT INSTRUCTOR Alejandra Huggins MD LAB MICROBIOLOGY - GENERAL ORDER CARRIE Final Result [facility] [address] [place] [address] from Last 3 Months or Most Recently Relevant to Health Maintenance Insurance [facility] Care Teams Oracle Webcenter Consultant Relationship Specialty [place] [address] [address] [address] PCP - General 10/21/17
== END 2024-04-24 16:04 | disposition home or self-care (01) ==
LOC: ANHIMG 16:05
PROVIDERS: PCP Family Medicine; Visit Provider Surgery
DX: R10.32 Left lower quadrant pain (principal)
CPT/HCPCS: 72192

== ENCOUNTER 2024-06-28 09:19 | Outpatient (CLI) | payer OTHER, SELFPAY ==
--- NOTE | ~2024-06-28 | US_ITS ---
Pelvic ultrasound. Clinical History: Pelvic pain Technique: Realtime transabdominal and transvaginal scanning of the pelvis was performed. Color flow Doppler and Doppler spectral analysis were performed. Findings: The uterus is anteverted. The endometrial stripe has a thickness of 3 mm. No focal mass is identified. The right ovary measures 1.5 x 1.5 x 2.3 cm. No significant right ovarian or adnexal mass is seen. The left ovary measures 4.5 x 2.7 x 3.7 cm. Simple left ovarian cyst measures 3.8 cm in diameter. Vascular flow present in both ovaries on Doppler spectral analysis. There is no evidence of free fluid in the cul de sac. Impression: 3.8 cm simple left ovarian cyst. Reviewed, dictated and finalized at [facility]. Impression: 3.8 cm simple left ovarian cyst.
== END 2024-06-28 09:20 | disposition home or self-care (01) ==
LOC: GOSHIMG 09:19
PROVIDERS: PCP Nurse Practitioner Obstetrics & Gynecology; Visit Provider Nurse Practitioner Obstetrics & Gynecology
DX: R10.32 Left lower quadrant pain (principal); N83.202 Unspecified ovarian cyst, left side
CPT/HCPCS: 76830; 76856

== ENCOUNTER 2024-08-02 08:20 | Outpatient (CLI) | payer OTHER, SELFPAY ==
--- NOTE | ~2024-08-02 | US_ITS ---
Pelvic ultrasound. Clinical History: Left ovarian cyst COMPARISON: 06/28/2024 Technique: Realtime transabdominal and transvaginal scanning of the pelvis was performed. Color flow Doppler and Doppler spectral analysis were performed. Findings: The uterus is anteverted. The endometrial stripe has a thickness of 7 mm. No focal mass is identified. The right ovary measures 3.2 x 2.4 x 2.9 cm. Simple right ovarian cyst measures 2.7 cm in diameter. The left ovary measures 1.6 x 2.1 x 1.7 cm. No significant left ovarian or adnexal mass is seen. There is no evidence of free fluid in the cul de sac. Impression: 2.7 cm simple right ovarian cyst. No further follow-up required. Interval resolution of previously noted left ovarian cyst. Reviewed, dictated and finalized at [facility]. Impression: 2.7 cm simple right ovarian cyst. No further follow-up required. Interval resolution of previously noted left ovarian cyst.
== END 2024-08-02 08:21 | disposition home or self-care (01) ==
LOC: GOSHIMG 08:21
PROVIDERS: PCP Nurse Practitioner Obstetrics & Gynecology; Visit Provider Nurse Practitioner Obstetrics & Gynecology
DX: N83.202 Unspecified ovarian cyst, left side (principal); N83.201 Unspecified ovarian cyst, right side
CPT/HCPCS: 76830; 76856

== ENCOUNTER 2024-08-16 11:28 | Outpatient (CLI) | payer OTHER, SELFPAY ==
[2024-08-16 12:29] LABS: Basophils Absolute Auto 0.1 K/mm3 (0.0-0.1); Basophils Percent Auto 0.9 % (0.2-1.2); Eosinophils Absolute Auto 0.2 K/mm3 (0-0.3); Eosinophils Percent Auto 3.7 % (0-4.4); Hematocrit 40.4 % (37.0-47.0); Hemoglobin 12.9 g/dL (12.0-15.0); Immature Granulocyte Absolute 0.01 K/mm3 (0.00-0.031); Immature Granulocyte Percent A 0.2 % (0-0.5); Lymphocytes Absolute Auto 1.47 K/mm3 (0.9-3.2); Lymphocytes Percent Auto 27.5 % (18.3-44.2); Mean Corpuscular HGB Conc 31.9 g/dl (32-36); Mean Corpuscular Hemoglobin 28.5 pg (26-34); Mean Corpuscular Volume 89.2 fl (80-100); Mean Platelet Volume 10.6 fl (7.4-10.4); Monocytes Absolute Auto 0.3 K/mm3 (0.1-0.6); Monocytes Percent Auto 5.8 % (2.6-8.5); Neutrophils Absolute Auto 3.3 K/mm3 (1.3-6.7); Neutrophils Percent Auto 61.9 % (45.5-73.1); Platelet Count Result 277 k/mm3 (150-375); Red Blood Count 4.53 M/mm3 (4.2-5.4); Red Cell Distribution Width 14.6 % (11.5-14.5); White Blood Count 5.4 K/mm3 (4.5-10.0)
[2024-08-16 12:46] LABS: Iron 40 ug/dL (37-170)
[2024-08-16 12:51] LABS: Alanine Aminotransferase 31 U/L (6-35); Albumin Level 4.4 g/dL (3.5-5.1); Alkaline Phosphatase 84 U/L (38-126); Anion Gap 7 mmol/L (4-12); Aspartate Amino Transferase 39 U/L (14-36); Bilirubin,Total 0.2 mg/dL (0.2-1.3); Blood Urea Nitrogen 13 mg/dL (7-17); Calcium 9.6 mg/dL (8.4-10.2); Carbon Dioxide 29 mmol/L (22-30); Chloride 104 mmol/L (98-107); Cholesterol 202 mg/dL (0-200); Estimated Glomerular Filt Rate > 60; Glucose 98 mg/dL (65-110); HDL Direct 73 mg/dL; Potassium 3.8 mmol/L (3.4-5.0); Sodium 140 mmol/L (137-145); Total Protein 7.5 g/dL (6.3-8.2); Triglycerides 174 mg/dL (<150)
[2024-08-16 12:56] LABS: Percent Iron Saturation 7 % (20-50)
[2024-08-16 13:19] LABS: LDL Cholesterol Direct 90 mg/dL
[2024-08-16 13:24] LABS: Thyroid Stimulating Hormone 0.266 uIU/mL (0.465-4.680)
== END 2024-08-16 11:29 | disposition home or self-care (01) ==
LOC: ANHGOSHLAB 11:30
PROVIDERS: PCP Nurse Practitioner Obstetrics & Gynecology; Visit Provider Nurse Practitioner Family
DX: F41.9 Anxiety disorder, unspecified (principal); H81.09 Meniere's disease, unspecified ear; K58.9 Irritable bowel syndrome, unspecified; D84.9 Immunodeficiency, unspecified; M79.7 Fibromyalgia; G43.909 Migraine, unspecified, not intractable, without status migrainosus; R53.83 Other fatigue
CPT/HCPCS: 36415; 80053; 80061; 82728; 83540; 83550; 84443; 85025

== ENCOUNTER 2025-01-17 09:30 | Outpatient (CLI) | payer OTHER, SELFPAY ==
--- OUTSIDE RECORDS SUMMARY | 2024-03-09 07:00 | XMS_ITS ---
Author Organization [facility] kenya Address [address] [place] [address] Care Team Providers Care Lawn Mower Operator Name Role Phone Jessica RODRIGUEZ, Jose Manuel Primary Care Provider Alejandra Saldaña Unavailable [phone] REASON FOR VISIT 3 month follow up/flc Encounters Encounter Location Date Provider Diagnosis [facility] [address] [place] [address] 03/09/2024 Alejandra Snider Plan Of Treatment No Information Progress Notes * Carina SORENSONOB:[birth year] (24 yo F)Acc No.[id number]:03/09/2024 Progress Notes Patient: Ciera GILMORE Appointment Provider: Dara SNIDER MD :2000 A ge:23 Y S ex:Female Date:03/09/2024 Address:[address] [place] [address], [facility] Pcp:Jose Manuel Lopez MD Subjective: * Chief Complaints: * 1 . 3 month follow up/flc. * Medical History: Objective: * Vitals: Assessment: Plan: * Treatment: * Billing Information: * Visit Code: * Procedure Codes: * Electronic signature of Alejandra Snider MD on 01/17/2025 at 10:23 AM HOSPITAL UNIT CLERK Sign off status: Pending * Appointment Provider: Dara SNIDER MD Date: 03/09/2024 Generated for Froilan sykes/Nia/eTransmitting on: 03/19/2024 10:23 AM HOSPITAL UNIT CLERK
--- NOTE | ~2025-01-17 | US_ITS ---
LIMITED ABDOMINAL ULTRASOUND INDICATION: K80.20 - Calculus of gallbladder without cholecystitis wi... Right upper quadrant pain and epigastric pain. COMPARISON: None. FINDINGS: Liver: Visualized portions of the liver are normal. There is normal directional flow in the portal vein. Common bile duct: Normal in size. Gallbladder: The gallbladder wall is normal in thickness. No stones or sludge were seen. Delgado's sign: Negative Pancreas: The imaged portions appear normal. Right kidney: Right kidney appears normal on the images provided. IMPRESSION: No significant abnormality seen. Reviewed, dictated and finalized at location A. SYSTEMS MANAGER
--- OUTSIDE RECORDS SUMMARY | 2025-01-17 10:23 | XMS_ITS | Clinical Summary ---
Author Organization [facility] Address [address] [place] [address] Care Team Providers Care Shadowgraph Operator Name Role Phone Darell Tellez MD Primary Care Provider [phone] Source Comments [facility],non-owned Affiliates and Associated Physician Practices is amultiple site organization consisting of ambulatory clinics and hospital sitesin [place], [place]. This disclosure is being madepursuant to the Care Everywhere program and may not contain all information available regarding this patient. Last updated 17.[facility] Allergies Active Allergy Reactions Criticality Noted Date Comments Amoxicillin-Pot Clavulanate Diarrhea Medium 06/05/19 Medications * Be aware that medications may not be up to date on this document. Alwaysverify current medications with the patient. levonorgestrel- ethinyl estradiol (DAYSEE) 0.15-0.03 &0.01 MG tablet 05/26/2017 Active SPIRONOLACTONE PO Active Amitriptyline HCl Active benzonatate (TESSALON) 200 MG capsuleIndicati ons:Cough Take 1 capsule by mouth 3 times [...] Smokeless Tobacco: Never Comments:Non smoking househo ld Comments No Sex and Gender Information Value Date Recorded Sex Assigned at Not on file Legal Sex Female 1:51 PM WHEELCHAIR DRIVER Gender Identity Not on file Sexual Orientation Not on file Last Filed Vital Signs Vital Sign Reading Time Taken Comments Blood Pressure 110/74 05/06/2018 12:18 PM WHEELCHAIR DRIVER Pulse 77 06/04/2017 12:31 PM CDT Temperature 37 C (98.6 F) 05/06/2018 12:18 PM WHEELCHAIR DRIVER Respiratory Rate 16 05/06/2018 12:18 PM WHEELCHAIR DRIVER Oxygen Saturation 98% 05/06/2018 12:18 PM WHEELCHAIR DRIVER Inhaled Oxygen Concentration - - Weight 58.2 kg (128 lb 6.4 oz) 05/06/2018 12:18 PM WHEELCHAIR DRIVER Height 170.2 cm (5' 7) 05/06/2018 12:18 PM WHEELCHAIR DRIVER Body Mass Index 20.11 05/06/2018 12:18 PM WHEELCHAIR DRIVER Plan of Treatment Health Maintenance Due Date Last Done Comments HIV SCREENING 11/29/2015 HPV VACCINE (1 - 3-dose series) 11/29/2015 CHLAMYDIA/GONORRHEA SCREENING 2016 HEPATITIS C SCREENING 11/24/2018 DTAP/TDAP/TD VACCINES (1 - Tdap) 11/29/2019 HEPATITIS B VACCINE (1 of 3 - 19+ 3-dose series) 11/29/2019 DEPRESSION SCREENING 03/08/2024 COVID-19 VACCINE (1 - 2023-2 5 season) 2024 INFLUENZA VACCINE (#1) 2024 ZOSTER VACCINE (1 of 2) 2050 HIB VACCINE Aged Out No longer eligi ble based on patient's age to complete this topic MENINGOCOCCAL (Group B) VACC INE SHARED DECISION-MAKING Aged Out No longer eligibl e based on patient's age to complete this topic MENINGOCOCCAL GROUPS A/C/Y/W VACCINE Aged Out No longer eligible b ased on patient's age to complete this topic PNEUMOCOCCAL VACCINE Aged Out No long er eligible based on patient's age to complete this topic Insurance 153Kailey lora [address] [place] [address] [id number] [place] [address] [facility] Care Teams Shadowgraph Operator Relationship Specialty Start Date End Date Darell Tellez MD [address] [place], [place] [id number] PCP - General 06/25/17
--- OUTSIDE RECORDS SUMMARY | 2025-01-17 10:23 | XMS_ITS | Clinical Summary ---
Author Organization [facility] Address [address] [place] [address] Care Team Providers Care Slots Manager Name Role Phone Lisa Clveeland NP Primary Care Provider [phone] Allergies Active Allergy Reactions Criticality Noted Date [...] Reviewed all records. EGD and Biopsies at [facility] were all normal. She feels better opn [...] Has apparently had eval and follow at [facility] so will get those records. pc Epi bloat,cramp 4 years with D/C. Bentyl and elavil bith help sx but bentyl makds her dizzy. 3 yrs ago rectal bleed and none since. Active high school student. PE neg. Discussed likelihood ibs but offered full eval. She agrees to bentyl 10 30min ac and hs and continue the elavil 20 hs. Review [facility] records and return 3 weeks. Status post repair of glenoid labrum 11/05/2017 Glenoid labral tear, right, initial encounter Overview (10/11/2017): Added automatically from request for surgery [id number] Closed anterior dislocation of right shoulder Overview (10/11/2017): Added automatically from request for surgery [id number] Right upper quadrant abdominal pain 06/14/2017 Assessment & Plan (06/20/2017 9:33 AM CDT): Plan to check MAGISTRATE, Amylase and lipase. Arrange US of abdomen. [...] on file Legal Sex Female 1:06 AM REPORTS ANALYSIS MANAGER Gender Identity Not on file Sexual Orientation [...] 2:07 PM CDT Height 170.2 cm (5' 7) 08/29/2018 2:07 PM CDT Body Mass Index 20.52 08/29/2018 2:07 PM CDT Plan of Treatment Not on file Medical Devices Implanted Type Area Metaphysician Device Identifier Shelf Expiration Date Model / Serial / Lot [employer] [id number] Pushlock 2.9mm 12.5mm Cannulated Eyelet Handle Chief Internal Auditor Short - [id number] Implanted:Qty: 3 on 10/21/2017 by Jay Feliz MD at [facility] Right: Shoulder [employer] 06/06/2019 AR-[id number] / / [id number] Ar[employer] Labral Tape 1.5mm Implanted:Qty: 4 on 10/21/2017 by Jay Feliz MD at [facility] Right: Shoulder [employer] [id number] 02/04/2022 [id number] / / [id number] [employer] Ar-[id number] Pushlock 2.9mm 12.5mm Cannulated Eyelet Handle Chief Internal Auditor Short - [id number] Implanted:Qty: 1 on 10/21/2017 by Jay Feliz MD at [facility] Right: Shoulder [employer] 01/05/2019 [id number] / / [id number] Insurance [facility] H[facility]/PPO Address[facility] [address] [place] [address] [facility] HMO/PPO Address: [facility] [address] [place] [address] Care Teams Slots Manager Relationship Specialty [place] [address] [address] PCP - General 10/21/17
--- OUTSIDE RECORDS SUMMARY | 2025-01-17 10:23 | XMS_ITS | Patient Health Record ---
Author Organization [facility] [place] Address [address] [place] [address] Care Team Providers Care Water Control Station Engineer Name Role Phone Jose Manuel Lopez MD Primary Care Provider Parul devonophelia HugginsAlejandra Unavailable [phone] Allergies Allergen (clinical drug ingredient) Drug/Non Drug [...] MG 1 capsule Orally On ce a day; Duration: 30 day(s) Active Amitriptyline HCl 10 MG 2 tablet at bedt catherine Orally Once a day; Duration: 30 day(s) Active Pgy-Tp-Aklbcrhv 0.18/0.215/0.25 MG-25 MCG 1 tablet Orally Once a day; Duration: 28 day(s) Active Iron-Vitamin C Activ e Social History Tobacco Use: Social History Observation Description Date Details (start date - stop date) Never Smoker NA - NA Household Question Answer Notes Marital status: single Tobacco Control (Standard) Question Answer Notes Tobacco use: Nonsmoker Problems Problem Type SNOMED Code ICD Code Onset Dates Problem Status W/U Status Risk Notes Problem Chronic pain (74645850) Other chronic pain (G89.29) Active confirmed Problem Fibromyalgia (592459597) Fibromyalgia (M79.7) Active confirmed Plan Of Treatment Pending Test Test Name [...] Coverage Start Date Coverage End Date [employer] [address] [place] [address] [id number] Ciera Sorenson Self - patient is the insured Medical (General) History Medical History History ICD Code appendicitis IBS shoulder dislocation glenoid labral tear migraines Surgical History Surgery Date(Month/Year) hand surgery appendectomy
--- OUTSIDE RECORDS SUMMARY | 2025-01-17 10:23 | XMS_ITS | Encounter Summary ---
Author Organization [facility] Address [address] [facility] [place] [address] Care Team Providers Care Graduate Studies Dean Name Role Phone Darell Tellez MD Primary Care Provider [phone] Lisa Cleveland [facility] Primary Care Provide r Darell Tellez MD Primary Care Provider [phone] Reason for Visit * Reason Onset Date Comments Parent Return Call 01/13/2016 Encounter Details Date Type Department Care Team (Late st Contact Info) Description 01/13/2016 Telephone [facility] Pediatrics - [address] [address] Alyssa Castañeda MD [address] [place] [address] Parent Return Call Social History Tobacco Use Types Packs/Day Years Used Date Smoking Tobacco: Never Comments Unknown Sex and Gender Information Value Date Recorded Sex Assigned at Not on file Legal Sex Female 1:51 PM LAN ADMINISTRATOR Gender Identity Not on file Sexual Orientation Not on file documented as of this encounter Miscellaneous Notes * Telephone Encounter - Noni Andujar - 01/21/2016 2:29 PM CST Mom calling back. They have decided to hold off on scheduling scope at this time. They are going towork on trying to eliminate things from Ciera's diet and see if that helps. ADMINISTRATOR * Telephone Encounter - Noni Andujar - 01/20/2016 11:37 AM LAN ADMINISTRATOR Spoke with mom, they are still undecided as to whether they wish to proceed with EGD. She will callback. ADMINISTRATOR * Telephone Encounter - Noni Andujar - 01/15/2016 10:50 AM LAN ADMINISTRATOR Spoke with mom, she wishes to discuss this with Ciera to see that her symptoms are bad enough to proceed with scope because their insurance is terrible and they don't want to take on unnecessary bills. Mom and dad would also then need to discuss timing if they choose to proceed. Mom will call backtomorrow to update. ADMINISTRATOR * Telephone Encounter - Lila Dodson - 01/14/2016 3:24 PM CST Left VM to call office to schedule EGD ADMINISTRATOR * Telephone Encounter - Kelsey Mattson RN - 01/14/2016 1:[address] Castañeda 's message on mom's identified VM. ADMINISTRATOR * Telephone Encounter - Alyssa Castañeda MD - 01/14/2016 12:38 PM CST Ciera has been dependent on high dose PPIs for several months. My recommendation is to proceed with EGD. ADMINISTRATOR * Telephone Encounter - Ashely King RN - 01/13/2016 10:37 AM LAN ADMINISTRATOR Spoke to mom, states that the pain is for sure better on the medication, but she can not say it is completely gone. Will update Dr. Castañeda ADMINISTRATOR * Telephone Encounter - Noni Andujar - 01/13/2016 10:32 AM LAN ADMINISTRATOR Mom returning call. ADMINISTRATOR documented in this encounter Plan of Treatment Not on file documented as of this encounter Visit Diagnoses Not on filedocumented in this encounter Care Teams Graduate Studies Dean Relationship Specialty Start Date End Date Darell Tellez MD [address] [place] [address] PCP - General Pediatrics 09/10/11 11/18/16 Lisa Cleveland, FREIGHT SEPARATOR-PATIENT TRANSPORT ORDERLY [address] [place] [address] PCP - General Nurse Practitioner 11/19/16 06/24/17 Darell Tellez MD [address] [place] [address] PCP - General 06/25/17 documented as of this encounter
== END 2025-01-17 09:31 | disposition home or self-care (01) ==
PROVIDERS: PCP Family Medicine; Visit Provider Surgery
DX: K80.20 Calculus of gallbladder without cholecystitis without obstruction (principal)
CPT/HCPCS: 76705